=== PATIENT | male | born 1930 | race Caucasian/White ===

== ENCOUNTER → 2017-01-14 | Outpatient (CLI) | payer MEDICARE ==
[~2017-01-14] MED LIST: CARTIA XT120 MG PO; LASIX20 MG PO; LIPITOR20 M1 PO; NITROSTAT0.4 MG SL; PLAVIX75 MG PO; TOPROL XL25 MG PO; XARELTO15 MG PO
--- NOTE | ~2017-01-14 | PUL ---
PATIENT'S NAME: ALICJA ESPITIA [facility] AGE: 86 Y [address] ROOM: [place] [address] LOCATION: [facility] ADMIT DATE: 01/14/2017 Pulmonary DISCHARGE DATE: FAMILY PHYSICIAN: STAR BRICENO MD ATTENDING PHYSICIAN: STAR BRICENO NAME OF PROCEDURE: Sleep study DATE OF PROCEDURE: 01/14/17 TECH: Myke Gates [facility] TEST #: [facility]# [id number] MEDICAL HISTORY: The patient is an 86-year-old gentleman with nocturnal hypoxemia, daytime sleepiness and snoring. SLEEP STAGE SUMMARY: The patient was studied for 477 minutes of which he slept 329 minutes. He fell asleep in 6 minutes and slept for 69% of the night. Sleep architecture demonstrated a decrease in slow wave and REM sleep. RESPIRATORY SUMMARY: Oxygen saturations ranged from 78-96% and were below 88% for 9 minutes. There were 124 central apneas, 1 mixed apnea and 6 hypopneas. CPAP was initiated and titrated. The patient was switched to BiPAP. BiPAP at 19/15 cm produced significant improvement in the apnea/hypopnea index but was it was still elevated at 15 events per hour. EKG SUMMARY: Average heart rate during sleep 73 beats per minute. LIMB MOVEMENT SUMMARY: No clinically relevant periodic limb movements were noted. SUMMARY: Predominantly central sleep apnea. PLAN: Would consider a repeat study to re-titrate BiPAP. ASV ventilation could be considered unless the patient has dilated cardiomyopathy with an ejection fraction of left less than 40%. If the patient repeats BiPAP titration then a timed mode should be added. Patient will receive results from the ordering provider. MALLIKA CULVER MD PATIENT'S NAME: ALICJA ESPITIA [facility] AGE: 86 Y [address] ROOM: [place] [address] LOCATION: [facility] ADMIT DATE: 01/14/2017 Pulmonary DISCHARGE DATE: FAMILY PHYSICIAN: STAR BRICENO MD ATTENDING PHYSICIAN: STAR BRICENO/ /[id number] P dtt: 01/22/17 1455 Brian David E. dtd: 01/18/17 0939
== END | disposition disaster alternative care site (69) ==
LOC: GSLP 20:24
DX: G47.34 Idiopathic sleep related nonobstructive alveolar hypoventilation (principal); G47.31 Primary central sleep apnea; I50.9 Heart failure, unspecified; I27.2 Other secondary pulmonary hypertension

== ENCOUNTER → 2017-02-26 | Outpatient (CLI) | payer MEDICARE ==
--- NOTE | ~2017-02-26 | ENPV ---
Vascular Lower Extremities DVT Study Procedure Demographics Patient Name ALICJA ESPITIA Date of Study 02/26/2017 Patient Number [id number] Gender Male Date of 1930 Age 86 Visit Number [id number] Height Accession Number [id number] Weight Room Number BSA BMI Referring Rina Gutierrez MD Interpreting Byron Pinto MD Physician Physician Physician Ordering Rina Gutierrez [employer] Work Program Director Sakshi [facility] Prema Dawson Conclusions Summary The left superficial femoral vein appears to be bi-fed. There is sub-acute, partially occlusive deep vein thrombosis in the mid segment of the left common femoral vein(s). No evidence of deep vein thrombosis or superficial thrombophlebitis in the contralateral groin. Procedure Type of Study: Veins:Lower Extremities DVT Study, Lower Extremity Left. Indications for Study:Pain in Limb and Swelling of Limb. Appropriate Use Criteria:9 Allergies - No known allergies. Patient Status:Routine. Study Location:Vascular Lab. Technical Quality:Adequate visualization. - Preliminary reported to:Dr. Flynn. Velocities are measured in cm/s ; Diameters are measured in cm Right Lower Extremities DVT Study Measurements Right 2D and Doppler Measurements + + + + +------+------+ + !Location !Visualized!Compressibility!Thrombosis!Signal!Reflux!Reflux ! ! ! ! ! ! ! !(sec) ! + + + + +------+------+ + !GSV Thigh !Yes !Yes !None !Phasic! ! ! + + + + +------+------+ + !Common !Yes !Yes !None !Phasic! ! ! !Femoral ! ! ! ! ! ! ! + + + + +------+------+ + Left Lower Extremities DVT Study Measurements Left 2D and Doppler Measurements + + + + +------+------+ + !Location !Visualized!Compressibility!Thrombosis!Signal!Reflux!Reflux ! ! ! ! ! ! ! !(sec) ! + + + + +------+------+ + !GSV Thigh !Yes !Yes !None !Phasic! ! ! + + + + +------+------+ + !Common !Yes !Yes !None !Phasic! ! ! !Femoral ! ! ! ! ! ! ! + + + + +------+------+ + !Prox !Yes !Yes !None !Phasic! ! ! !Femoral ! ! ! ! ! ! ! + + + + +------+------+ + !Mid Femoral!Yes !No !Sub-acute ! ! ! ! + + + + +------+------+ + !Dist !Yes !Partial !None !Phasic! ! ! !Femoral ! ! ! ! ! ! ! + + + + +------+------+ + !Popliteal !Yes !Yes !None !Phasic! ! ! + + + + +------+------+ + !Gastroc !Yes !Yes !None ! ! ! ! + + + + +------+------+ + !PTV !Yes !Yes !None ! ! ! ! + + + + +------+------+ + !Peroneal !Yes !Yes !None ! ! ! ! + + + + +------+------+ + Impressions Right Impression No evidence of deep vein thrombosis or superficial thrombophlebitis in the contralateral groin. Left Impression The left superficial femoral vein appears to be bi-fed. Signature dtt: HELGA TROY dtadela: 02/26/17 1501 Physician Self Edit
== END | disposition disaster alternative care site (69) ==
LOC: GCAR 14:30
DX: R60.9 Edema, unspecified (principal); M79.605 Pain in left leg; I82.412 Acute embolism and thrombosis of left femoral vein

== ENCOUNTER → 2017-03-13 | Outpatient (CLI) | payer MEDICARE ==
--- NOTE | ~2017-03-13 | ENPV ---
Vascular Lower Extremities DVT Study Procedure Demographics Patient Name ALICJA ESPITIA Date of Study 03/13/2017 Patient Number [id number] Gender Male Date of 1930 Age 86 Visit Number [id number] Height Accession Number [id number] Weight Room Number BSA BMI Referring Interpreting Byron Pinto MD Physician Physician Physician Ordering Physician Regional Program Manager Tooling Mechanic Osman Dawson Conclusions Summary Chronic calf vein DVTs Procedure Type of Study: Veins:Lower Extremities DVT Study, Lower Extremity Left. Allergies - No known allergies. Velocities are measured in cm/s ; Diameters are measured in cm Right Lower Extremities DVT Study Measurements Right 2D and Doppler Measurements + + + + +------+------+ + !Location !Visualized!Compressibility!Thrombosis!Signal!Reflux!Reflux ! ! ! ! ! ! ! !(sec) ! + + + + +------+------+ + !Common !Yes !Yes !None ! ! ! ! !Femoral ! ! ! ! ! ! ! + + + + +------+------+ + Left Lower Extremities DVT Study Measurements Left 2D and Doppler Measurements + + + + +------+------+ + !Location !Visualized!Compressibility!Thrombosis!Signal!Reflux!Reflux ! ! ! ! ! ! ! !(sec) ! + + + + +------+------+ + !GSV Thigh !Yes ! !None ! ! ! ! + + + + +------+------+ + !Common !Yes !Yes !None ! ! ! ! !Femoral ! ! ! ! ! ! ! + + + + +------+------+ + !Prox !Yes !Yes !None ! ! ! ! !Femoral ! ! ! ! ! ! ! + + + + +------+------+ + !Mid Femoral!Yes !Yes !None ! ! ! ! + + + + +------+------+ + !Dist !Yes !Yes !None ! ! ! ! !Femoral ! ! ! ! ! ! ! + + + + +------+------+ + !Popliteal !Yes !Yes !None ! ! ! ! + + + + +------+------+ + !PTV !Yes ! !Chronic ! ! ! ! + + + + +------+------+ + !Peroneal !Yes ! !Chronic ! ! ! ! + + + + +------+------+ + Impressions Right Impression Common femoral vein imaged for comparison and found to be normal. Left Impression Left SFV appeared to be duel and appeared patent. Difficult to see Profunda vein in thigh so cannot rule out thrombus there. Calf veins also difficult to image but appeared to have filling defects similar to last study. Signature dtt: HELGA TROY: 03/13/17913 Physician Self Edit
== END | disposition disaster alternative care site (69) ==
LOC: GCAR 09:00
DX: M79.605 Pain in left leg (principal); I82.5Z2 Chronic embolism and thrombosis of unspecified deep veins of left distal lower extremity; Z86.718 Personal history of other venous thrombosis and embolism

== ENCOUNTER → 2017-03-17 | Outpatient (CLI) | payer MEDICARE ==
--- NOTE | ~2017-03-17 | PUL ---
PATIENT'S NAME: ALICJA ESPITIA [facility] AGE: 86 Y [address] ROOM: [place] [address] LOCATION: [facility] ADMIT DATE: 03/17/2017 Pulmonary DISCHARGE DATE: FAMILY PHYSICIAN: STAR BRICENO MD ATTENDING PHYSICIAN: STAR BRICENO NAME OF PROCEDURE: Sleep study PROCEDURE DATE: 03/17/17 TECH: EDILBERTO Etienne TEST #: [facility]# [id number] TECHNICAL PARAMETERS: The patient was studied using International 10/20 measuring system. While the patient was studied, there was continuous monitoring of EEG (8 leads), EOG (2 leads), EKG (3 leads), submental EMG (3 leads), tibial (4 leads), respiratory inductive plethysmography (RIP) for thoracic and abdominal effort, oral and nasal airflow with a thermocouple and pressure transducer, and oximetry. The hydraulic technician also performed visual and auditory observations noting things like body position, patient's status, breath sounds, artifact, snoring level and patient comments. Continuous sound was monitored using a 2-way speaker system and video monitoring was performed using an infrared camera. Review of the entire study was performed epoch by epoch utilizing a single epoch and multiple epoch capability sleep system. MEDICAL HISTORY: The patient is an 86-year-old overweight gentleman with daytime sleepiness and snoring. SLEEP STAGE SUMMARY: The patient was studied for 526 minutes of which he slept 419 minutes. He fell asleep in less than a minute and slept for 80% of the night. Sleep architecture revealed a decline in slow wave and REM sleep. RESPIRATORY SUMMARY: Oxygen saturations ranged from 78-92%. Saturations were below 88% for 42 minutes. This study was done to titrate PAP therapy. The patient was previously on BiPAP. BiPAP was started at 8/4 cm and titrated to 22/18 cm with good control of the respiratory events on that last setting. EKG SUMMARY: Average heart rate during sleep 69 beats per minute. LIMB MOVEMENT SUMMARY: No clinically relevant periodic limb movements were noted. SUMMARY: Obstructive sleep apnea. BiPAP at 22/18 cm appears to control the respiratory events adequately. The patient will receive results from the PATIENT'S NAME: ALICJA ESPITIA [facility] AGE: 86 Y [address] ROOM: [place] [address] LOCATION: [facility] ADMIT DATE: 03/17/2017 Pulmonary DISCHARGE DATE: FAMILY PHYSICIAN: STAR BRICENO MD ATTENDING PHYSICIAN: STAR BRICENO ordering provider. MALLIKA CULVER MD /[id number] dtt: 04/01/17 0742 , Mallika Culver. dtd: 03/20/17 1331
== END | disposition disaster alternative care site (69) ==
LOC: GSLP 02-24 21:00
DX: G47.34 Idiopathic sleep related nonobstructive alveolar hypoventilation (principal); G47.33 Obstructive sleep apnea (adult) (pediatric); I27.2 Other secondary pulmonary hypertension; R53.83 Other fatigue

== ENCOUNTER 2017-04-22 16:00 | Inpatient (IN) | payer MEDICARE ==
[~2017-04-22] VITALS: Ht 165.1 cm; Wt 86.6 kg
--- NOTE | ~2017-04-22 | ENPV ---
Vascular Lower Extremities DVT Study Procedure Demographics Patient Name ALICJA ESPITIA Date of Study 05/01/2017 Patient Number [id number] Gender Male Date of 1930 Age 86 Visit Number [id number] Height Accession Number [id number] Weight Room Number G3210 BSA BMI Referring Jenny Benitez Interpreting Byron Pinto MD Physician Rina Gutierrez MD Physician Consuelo [facility] Physician Ordering Physician Jenny Benitez Gas Mask Assembler Pheresis Specialist Bryan Portillo, T Conclusions Summary Acute occlusive deep vein thrombosis is noted in one of three femoral veins at the mid segment. Sub-acute non-occlusive deep vein thrombosis is noted in the left proximal femoral vein, distal femoral vein, and the popliteal vein. 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 The left posterior tibial and peroneal veins were not imaged secondary to wounds and dressings. Procedure Type of Study: Veins:Lower Extremities DVT Study, Lower Extremity Left. Additional Indications:Unilateral lower extremity edema Appropriate Use Criteria:8 Allergies - No known allergies. Patient Status:Routine. Study Location:Imaging Center. Technical Quality:Limited visualization due to wounds/dressings. - Preliminary reported to:Reported to [facility] nurse @ 2339. Velocities are measured in cm/s ; Diameters are measured in cm Right Lower Extremities DVT Study Measurements Right 2D and Doppler Measurements + + + + +------+------+ + !Location !Visualized!Compressibility!Thrombosis!Signal!Reflux!Reflux ! ! ! ! ! ! ! !(sec) ! + + + + +------+------+ + !Common !Yes !Yes !None !Phasic!No ! ! !Femoral ! ! ! ! ! ! ! + + + + +------+------+ + Left Lower Extremities DVT Study Measurements Left 2D and Doppler Measurements +---------+ + + + +------+--------+ !Location !Visualized!Compressibility!Thrombosis!Signal !Reflux!Reflux ! ! ! ! ! ! ! !(sec) ! +---------+ + + + +------+--------+ !GSV Thigh!Yes !Yes !None !Phasic !No ! ! +---------+ + + + +------+--------+ !Common !Yes !Yes !None !Phasic ! ! ! !Femoral ! ! ! ! ! ! ! +---------+ + + + +------+--------+ !Prox !Yes !Partial !Sub-acute !Diminished! ! ! !Femoral ! ! ! ! ! ! ! +---------+ + + + +------+--------+ !Mid !Yes !No !Acute !Absent ! ! ! !Femoral ! ! ! ! ! ! ! +---------+ + + + +------+--------+ !Dist !Yes !Partial !Sub-acute !Pulsatile !Yes ! ! !Femoral ! ! ! ! ! ! ! +---------+ + + + +------+--------+ !Popliteal!Yes !Partial !Sub-acute !Diminished!Yes ! ! +---------+ + + + +------+--------+ !Gastroc !Yes !Partial !Chronic ! ! ! ! +---------+ + + + +------+--------+ !PTV !No ! ! ! ! ! ! +---------+ + + + +------+--------+ !Peroneal !No ! ! ! ! ! ! +---------+ + + + +------+--------+ Signature dtt: HELGA TROY: 05/01/17 7340 Physician Self Edit
--- NOTE | ~2017-04-22 | CON ---
PATIENT'S NAME: ALICJA ESPITIA [facility] AGE: 86 Y [address] ROOM: [place] [address] LOCATION: [facility] ADMIT DATE: 04/22/2017 Consultation DISCHARGE DATE: 05/03/2017 FAMILY PHYSICIAN: STAR BRICENO MD ATTENDING PHYSICIAN: MYNOR BOURGEOIS REFERRING PHYSICIAN: SCOTT BUNCH MD A consult for Dr. Magdaleno. HISTORY OF PRESENT ILLNESS: This pleasant 86-year-old gentleman is referred for rehab evaluation, GIRP evaluation, admitted on 04/22/2017 with status post, as per history, on 04/25/2017, the following issues that were addressed: 1. Left foot first metatarsal osteomyelitis with full thickened wound at the metatarsal head with discharge and abscess formation. 2. Gastrocnemius equinus, shortened Achilles tendon, left leg. Did undergo: 1. Left gastrocnemius resection procedure. 2. Resection and debridement of 4 x 4 cm wound abscess, debridement of included skin, subcutaneous, and fascia with bone, as I mentioned, on 04/25/2017, details on record. He is, at the present time, nonweightbearing on that foot. PAST MEDICAL HISTORY: Past history of significance as follows: 1. Coronary artery disease, status post stenting. 2. Paroxysmal atrial fibrillation. 3. Peripheral vascular disease. 4. History of left lower extremity DVT. 5. Hypertension. PHYSICAL EXAMINATION: GENERAL: At the present time, he is alert, oriented, slightly hard of hearing. VITAL SIGNS: Blood pressure 142/95, temperature 97.9, pulse 124, respiration rate is 18. He is 5 feet 5 inches tall and weighs 86.6 kg. NEUROLOGIC: He is neurologically intact. Cranial nerves 2 through 12 are within normal limits. Deep tendon reflexes are present and equal throughout. Can move all 4. Muscle strength is about 4- throughout over 5 to 4/5; however, with decreased endurance and at risk of falling. MEDICATIONS: He is on the following medications: 1. Tylenol. 2. Halcion. 3. Heparin. PATIENT'S NAME: ALICJA ESPITIA [facility] AGE: 86 Y [address] ROOM: [place] [address] LOCATION: [facility] ADMIT DATE: 04/22/2017 Consultation DISCHARGE DATE: 05/03/2017 FAMILY PHYSICIAN: STAR BRICENO MD ATTENDING PHYSICIAN: MYNOR BOURGEOIS 4. Lipitor. 5. Plavix. 6. Percocet. 7. Chloraseptic. 8. Fleet Enema. 9. Dulcolax. 10. Milk of magnesia. 11. Benadryl. 12. Soma. 13. Reglan. 14. Florastor. 15. Cardizem. 16. NaCl 0.9%. 17. Teflaro. 18. Xarelto. 19. Rifadin. 20. Rocephin. ASSESSMENT AND PLAN: He is so far nonweightbearing on the left foot and will continue to do that. He is also partial weightbearing on the upper extremity, right side, because of the fracture of the scapula per orthopod. I feel this gentleman will benefit from intensive rehabilitation of about 10 to 14 days, aiming to discharge home at modified independence. All the above was explained to him in detail. He verbalized understanding and agreement. Thank you for this referral. NENA VALLADARES MD WMS/modl /[id number] d: 05/02/17 1338 t: 05/07/17 0834, CONSULTATION REPORT
--- NOTE | ~2017-04-22 | CON ---
PATIENT'S NAME: ALICJA ESPITIA [facility] AGE: 86 Y [address] ROOM: [address] [place], [place] [address] LOCATION: [facility] ADMIT DATE: 04/22/2017 Consultation DISCHARGE DATE: FAMILY PHYSICIAN: STAR BRICENO MD ATTENDING PHYSICIAN: MYNOR YIP DATE OF CONSULTATION: 04/30/2017 REFERRING PHYSICIAN: SCOTT BUNCH MD HISTORY OF PRESENT ILLNESS: Dr. Yip has requested that I provide an inpatient consultation on this 86-year-old male. I have specifically been asked to follow up on the status of the right scapula fracture for which I had been treating him as an outpatient before his admission for treatment of a foot infection. The patient had a scapular spine-acromion fracture superimposed upon severe rotator cuff arthropathy. He has been in a sling for comfort for several weeks. He states that his acute discomfort has subsided. In fact, he states that he has negligible residual discomfort whatsoever. He acknowledges that he has been spending time out of his sling with no significant discomfort. Inability to use his arm (because of sling immobilization) is impairing his ability to mobilize now that he has had a foot operation. PHYSICAL EXAMINATION: He is alert and oriented. He is, again, noted to be extremely stoic. There is no swelling or deformity at the right shoulder. There is no tenderness at the right scapular spine or acromion. Radial pulse 2+. There are no active skin lesions or masses at the right shoulder. Median, radial, and ulnar nerve motor and sensory function are normal at the right hand. RADIOGRAPHS: Followup radiographs of the right shoulder from last week were reviewed. These demonstrate superior migration of the humeral head and severe glenohumeral joint space narrowing. There is a declined orientation at the junction of the scapular spine and the acromion (consistent with malunion of a fracture in the vicinity). No fracture line is visible. IMPRESSION: Clinically healed right acromial-scapular spine fracture. Right shoulder rotator cuff arthropathy (minimally symptomatic presently). PLAN: He is cleared to discontinue the sling and bear weight as tolerated to the right upper extremity. I have asked him to contact me if he experiences significant recurrent discomfort. We reviewed the option of considering PATIENT'S NAME: ESPITIA, ALICJA E [facility] AGE: 86 Y [address] ROOM: [address] [address] LOCATION: [facility] ADMIT DATE: 04/22/2017 Consultation DISCHARGE DATE: FAMILY PHYSICIAN: STAR BRICENO MD ATTENDING PHYSICIAN: MYNOR YIP reverse total shoulder arthroplasty (if and when nonoperative modalities fail to adequately control his symptoms). MD HANNAH DAY/nelly /[id number] CC: Mynor Yip MD d: 05/01/17 0656 t: 05/05/17 0104, CONSULTATION REPORT
--- NOTE | ~2017-04-22 | CON ---
PATIENT'S NAME: ALICJA ESPITIA [facility] AGE: 86 Y [address] ROOM: [address] [address] LOCATION: [facility] ADMIT DATE: 04/22/2017 Consultation DISCHARGE DATE: FAMILY PHYSICIAN: STAR BRICENO MD ATTENDING PHYSICIAN: MYNOR BOURGEOIS REFERRING PHYSICIAN: SCOTT BUNCH MD CHIEF COMPLAINT: Left toe ulcer and pain. The history is per primary through his [id number]-hit and some via the patient. HISTORY OF PRESENT ILLNESS: A pleasant 86-year-old male patient, who was seen in his primary care provider's office approximately 1 month ago with complaints of a blister on the medial left first metatarsal. The patient complained about some toe pain, swelling, redness. The patient was referred [facility] at that time. Apparently, the blister and wound went on to heal. Approximately 1 week ago, the patient took an extended walk and the blister worsened. Over the week, he again had toe pain, redness, and swelling. The patient had continued to be seen in Wound Care. Over the weekend apparently, the wound worsened with increasing pain and redness and swelling. On Saturday, the patient was seen in the [facility] where there was some bloody purulent- type drainage coming from the patient's ulcer. The patient was referred to the PCPs office, and the PCP admitted the patient to the hospital service for treatment. The patient does have a history of PVD, which per report, the patient's vascular study showed adequate blood flow to the left foot and toes. The patient had reported fever and chills on the history and physical, but denied any when I asked today. The xofrruva-ee-ggd does say the patient can be confused at times. An MRI of the left foot did show an osteomyelitis of the first metatarsal head per report. The patient was diagnosed with a left lower extremity DVT and has been on long- term anticoagulations since that time. The patient will be seen by Dr. French in the morning. PAST MEDICAL HISTORY: Positive for peripheral neuropathy, coronary artery disease, status post stents, paroxysmal atrial fibrillation, peripheral vascular disease, lower extremity DVT, hypertension, and chronic kidney disease. SOCIAL HISTORY: The patient does not report any history of smoking, alcohol, or illicit drug use. PATIENT'S NAME: ALICJA ESPITIA [facility] AGE: 86 Y [address] ROOM: [id number] [place], [place] [address] LOCATION: [facility] ADMIT DATE: 04/22/2017 Consultation DISCHARGE DATE: FAMILY PHYSICIAN: STAR BRICENO MD ATTENDING PHYSICIAN: MYNOR BOURGEOIS FAMILY HISTORY: Positive for history of coronary artery disease and high blood pressure in his parents. CURRENT MEDICATIONS: 1. Cardizem CD 120 mg p.o. daily. 2. Cubicin 500 mg IV at night. 3. Florastor 250 mg p.o. b.i.d. 4. Heparin per protocol. 5. Lopressor 25 mg p.o. b.i.d. 6. Plavix 75 mg p.o. daily. 7. Zosyn 3.375 inhales q.8 hours. 8. The patient is also on Percocet 5/325 one tablet every 4 hours as needed for pain. REVIEW OF SYSTEMS: All other review of systems was negative other than what is stated in HPI. PHYSICAL EXAMINATION: CONSTITUTIONAL: This is an 86-year-old male patient, who is confused at times. He is in no acute distress. VITAL SIGNS: Blood pressure 92/51, heart rate is 82, respirations are 16, temperature is 98.3 degrees. SKIN: There is approximately 1.5 cm x 1.5 cm ulcerations on the patient's left medial distal first metatarsal. No active drainage noted. There was some mild swelling and redness around the ulceration and the foot. HEENT: Head was atraumatic, normocephalic. Extraocular muscles are intact. Mouth was moist. Oropharynx is clear. No active drainage from the nose. NECK: Supple. Trachea was midline. HEART: Regular rate and rhythm. LUNGS: Respirations were even and nonlabored. ABDOMEN: Soft, nontender, nondistended. : Deferred. MUSCULOSKELETAL: The patient's right lower extremity, right ankle had no palpable tenderness. Range of motion was approximately 2 degrees and 35 degrees of dorsiflexion with 5/5 strength. Right knee range of motion was 0 to approximately 130 degrees of flexion. Collateral and cruciate ligaments were stable with no palpable tenderness. Left lower extremity: Left knee range of motion was 0 to approximately 130 degrees of flexion. Cruciate and collateral ligaments were stable. No palpable tenderness. Left ankle range of motion was approximately 2 degrees of dorsiflexion to 35 degrees of plantar flexion with 5/5 strength left foot as described above. Skin ulceration as described above. Bilateral lower extremities compartments are soft. Right upper extremity: The patient was in a sling from a prior fracture that is PATIENT'S NAME: ALICJA ESPITIA [facility] AGE: 86 Y [address] ROOM: [address] [address] LOCATION: [facility] ADMIT DATE: 04/22/2017 Consultation DISCHARGE DATE: FAMILY PHYSICIAN: STAR BRICENO MD ATTENDING PHYSICIAN: MYNOR BOURGEOIS being followed by Dr. Packer. There was vascular stasis changes noted of bilateral lower extremities. VASCULAR: Right and left pedal pulses were not palpable, but capillary refill was less than 2 seconds. Lower extremity sensation. NEUROLOGICAL: Bilateral lower extremity sensation was decreased to light touch. LABORATORY DATA: Sodium is 144, potassium is 3.5, chloride is 107, CO2 is 28, BUN is 24, creatinine was 1.5, glucose was 103. CBC: Hemoglobin was 12.2, hematocrit was 38.3, WBCs were 8.0, and platelet count was 209. INR is 1.28. PTT was 13.5, magnesium 2.4. Wound cultures showed a pansensitive group B strep and Proteus mirabilis that was also pansensitive. Radiology per report right shoulder findings: 1. Extreme glenohumeral degenerative joint disease. 2. No convincing fracture, no periosteal retraction. Left foot MRI findings: 1. MRI findings of osteomyelitis at the head of the first metatarsal bone. 2. Soft tissue injury with adjacent swelling and edema at the medial side of the foot at the area of the first metatarsal joint. 3. Degenerative changes of the foot. IMPRESSION: Left first metatarsal head, osteomyelitis. PLAN: We will order x-rays of the left foot to document the bone. We will also check CRP and ESR levels to check inflammatory markers. The case was reviewed with Dr. French via the phone who did have a chance to review the MRI and we will plan for surgery tomorrow to include an irrigation and debridement of the left foot ulcer and resection of the first metatarsal head along with a gastrocnemius recession. CORNELL PACKER PA-C FOR MD ANTONIO SELF/nelly /[id number] d: 04/25/17 0030 t: 05/06/17 1043, CONSULTATION REPORT
--- NOTE | ~2017-04-22 | HP ---
PATIENT'S NAME: ALICJA ESPITIA [facility] AGE: 86 Y [address] ROOM: [place] [address] LOCATION: [facility] ADMIT DATE: 04/22/2017 History & Physical DISCHARGE DATE: FAMILY PHYSICIAN: STAR BRICENO MD ATTENDING PHYSICIAN: MYNOR BOURGEOIS DATE OF SERVICE: CHIEF COMPLAINT: Left toe ulcer, toe pain. HISTORY OF PRESENT ILLNESS: This is an 86-year-old male with history of coronary artery disease, status post recent stenting, paroxysmal atrial fibrillation, peripheral vascular disease, who presents from his primary care physician's office with complaints of worsening left toe pain, swelling, redness. The patient reports that he had been having increasing pain and swelling over left foot that has progressively gotten worse over the past month or so, and at the same time, a small ulcer that started on the inside of his left toe continuing to worsen, leading to how it is presenting today. The patient states that the pain is localized to the left foot and also mentions lower extremity numbness. The patient also describes generalized subjective fevers and chills as well. The patient of note was recently diagnosed with DVT on his left leg and had been on long-term anticoagulation for that. The patient otherwise denies any dizziness, lightheadedness, chest pain, shortness of breath, palpitations. Denies any cough, any dysuria, frequency urination. PAST MEDICAL HISTORY: 1. Coronary artery disease, status stent. 2. Paroxysmal atrial fibrillation. 3. Peripheral vascular disease. 4. Lower extremity DVT. 5. Hypertension. SOCIAL HISTORY: The patient does not report any history of smoking, alcohol use, or drug use. FAMILY HISTORY: The patient reports history of coronary artery disease and high blood pressure in the parents. REVIEW OF SYSTEMS: All systems have been reviewed and were all negative except as described in the HPI. PATIENT'S NAME: ALICJA ESPITIA [facility] AGE: 86 Y [address] ROOM: [place] [address] LOCATION: [facility] ADMIT DATE: 04/22/2017 History & Physical DISCHARGE DATE: FAMILY PHYSICIAN: STAR BRICENO MD ATTENDING PHYSICIAN: MYNOR BOURGEOIS PHYSICAL EXAMINATION: VITAL SIGNS: Blood pressure 117/75, pulse 77, respiratory rate 18, temperature 98.2, saturating 95% on room air. GENERAL: The patient is awake, alert, and oriented x3, in no acute distress. HEENT: Moist mucous membranes. No scleral icterus or conjunctival pallor noted. SKIN: Lower extremity swelling bilaterally and erythema with scaly skin noted. There is a dressing in place on the left foot with a visible ulcer with dark necrotic-looking tissue in the center of the ulcer. HEART: S1, S2. Regular rate and rhythm. CHEST: Clear to auscultation bilaterally. ABDOMEN: Soft, nontender, nondistended. EXTREMITIES: With +1 edema bilaterally. MUSCULOSKELETAL: Pain with active and passive range of motion of left great toe. NEURO: Grossly nonfocal. ASSESSMENT AND PLAN: 1. Left toe ulcer, concerning for osteomyelitis. The patient has failed outpatient treatment with oral antibiotics. At this point, we will go ahead and get an MRI of the foot and assess for osteomyelitis. The patient does exhibit signs of having severe peripheral vascular disease. I will involve Vascular Surgery, Dr. Matthews, in care of this patient. I will also start him on IV antibiotics with vancomycin and get wound cultures. 2. Left foot cellulitis. This is in relation to ulcer and surrounding tissue. Management is as above. 3. Paroxysmal atrial fibrillation. The patient is on long-term anticoagulation with Xarelto. I will hold this in anticipation of possible procedures to be done. If no procedure is needed, we will promptly resume this. We will await for vascular surgeon's input with regard to this. The patient did take his dose this morning. 4. Lower extremity deep venous thrombosis. The patient is on anticoagulation for this, and we will resume anticoagulation as soon as possible. 5. Coronary artery disease, status post recent stenting. We will continue the patient's cardiac medications. 6. Hypertension. Continue the patient's blood pressure medicines. MD LISA DISLA/nelly PATIENT'S NAME: ALICJA ESPITIA [facility] AGE: 86 Y [address] ROOM: [place] [address] LOCATION: [facility] ADMIT DATE: 04/22/2017 History & Physical DISCHARGE DATE: FAMILY PHYSICIAN: STAR BRICENO MD ATTENDING PHYSICIAN: MYNOR BOURGEOIS /[id number] D: [id number] T: [id number] HISTORY & PHYSICAL
--- NOTE | ~2017-04-22 | OR ---
PATIENT'S NAME: ALICJA PRUITT [facility] AGE: 86 Y [address] ROOM: [place] [address] LOCATION: [facility] ADMIT DATE: 04/22/2017 OR/Procedure Report DISCHARGE DATE: 05/03/2017 FAMILY PHYSICIAN: STAR BRICENO MD ATTENDING PHYSICIAN: MYNOR BOURGEOIS SURGEON: Ramone French MD MACHINE RIVETER: Charles Ji PA-C. DATE OF PROCEDURE: 04/25/2017 Corrected pre and post op diagnoses per physician 05/14/2017 AO PREOPERATIVE DIAGNOSES: 1. 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 2. Gastrocnemius equinus/shortened Achilles tendon, left leg. POSTOPERATIVE DIAGNOSES: 1. 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 2. Gastrocnemius equinus/shortened Achilles tendon, left leg. PROCEDURES: 1. Left gastrocnemius recession procedure. 2. Resection of first metatarsal bone. 3. Irrigation and debridement of full-thickness 4 cm x 4 cm wound abscess. Debridement included skin, subcutaneous tissue, muscle, fascia, and bone. 4. Use of intraoperative fluoroscopy, less than 1 hour. ANESTHESIA: General endotracheal anesthesia. FLUIDS: See anesthesia report. ESTIMATED BLOOD LOSS: Minimal. TOURNIQUET: Left proximal thigh 250 mmHg. SPECIMEN: Wound cultures from the left foot and osteomyelitic bone. COMPLICATIONS: None. DISPOSITION: Stable in PACU. COUNTS: All counts were correct. IMPLANTS: None. PATIENT'S NAME: ALICJA PRUITT [facility] AGE: 86 Y [address] ROOM: [address] [address] LOCATION: [facility] ADMIT DATE: 04/22/2017 OR/Procedure Report DISCHARGE DATE: 05/03/2017 FAMILY PHYSICIAN: STAR BRICENO MD ATTENDING PHYSICIAN: MYNOR BOURGEOIS INDICATIONS: Mr. Pruitt is a pleasant 86-year-old gentleman, who underwent the noted procedures above. The risks, benefits, and alternatives pursuing a surgical intervention were discussed with the patient and his family in detail. Anesthesia was consulted for their perioperative evaluation of the patient. I marked the left lower extremity indicating the correct surgical site. DESCRIPTION OF PROCEDURE: The patient was brought from the holding area to the operating room. A time-out was performed. Antibiotics were scheduled. General endotracheal anesthesia was administered. Left lower extremity was then prepped and draped in a sterile fashion. An Esmarch was used to exsanguinate the limb. The tourniquet was inflated to 250 mmHg. A final time-out was performed. I began at the medial aspect of the leg where I performed a gastrocnemius recession procedure. A longitudinal incision was made through skin, subcutaneous tissue, fascia, muscle, down to the gastrocnemius aponeurosis. I performed my gastrocnemius recession and achieved good dorsiflexion and diastasis of the gastrocnemius aponeurosis indicating successful procedure. The wound was then copiously irrigated with a normal sterile saline solution and closed in layers. I then turned my attention to the medial aspect of the foot. There was a 4.4 cm fungating wound with purulent drainage, that was full thickness in nature at the level of the metatarsophalangeal joint. I began with a thorough debridement of the wound. The debridement included skin, subcutaneous tissue, muscle, fascia, and bone. I ellipsed out the wound in its entirety. They measured approximately 4 cm x 4 cm. I extended the incision proximally along the first metatarsal. I introduced intraoperative fluoroscopy. I imaged the foot. Using an oscillating saw, I amputated the first metatarsal. Intraoperative wound cultures were obtained and osteolytic metatarsal was sent for specimen as well. The wound was then copiously irrigated with normal sterile saline solution. The debridement was undertaken with the use of a rongeur and 15-blade knife. A 3 L of normal saline solution via pulsatile lavage was used for the purposes of irrigating the wound out. The final fluoroscopic image indicated successful resection of the first metatarsal. The wound was then copiously irrigated again and closed using a 2-0 nylon suture in an interrupted horizontal mattress fashion to loosely approximate the tissue. Sterile dressing was placed in the form of Xeroform, followed by 4x4, Webril, PATIENT'S NAME: ALICJA PRUITT [facility] AGE: 86 Y [address] ROOM: [address] [address] LOCATION: [facility] ADMIT DATE: 04/22/2017 OR/Procedure Report DISCHARGE DATE: 05/03/2017 FAMILY PHYSICIAN: STAR BRICENO MD ATTENDING PHYSICIAN: MYNOR BOURGEOIS, and Stevie bandage. The tourniquet was let down. The patient was then transferred from operating table onto the stretcher and extubated. He was brought to the recovery room in stable condition. There were no intraoperative complications noted. Of note, my PA, Charles Ji PA-C, played an integral role in the intraoperative care of this patient. This included preoperative positioning, intraoperative expert retraction, and closing and dressing functions. IMPRESSION: The patient is status post the noted procedures above. PLAN: The patient will be nonweightbearing on the left lower extremity. I have encouraged him to rest, ice, and elevate the extremity going forward. Postop shoe will be placed on the foot for protection. Postoperative antibiotics will be as ordered currently. DVT prophylaxis may be in the form of Lovenox. Wound dressing will be checked on postoperative day one. My concern is that with a venous stasis disease in the patient's leg and the current state of the wound on the foot, there is a distinct possibility the patient may require higher amputation if these wounds do not heal. I relayed this to the family. I will continue to follow the patient closely in the postoperative period. MD LEVI SELF/nelly /[id number] Corrected pre and post op diagnoses per physician 05/14/2017 AO d: 04/25/17 2354 t: 05/15/17 1042, OPERATIVE SUMMARY
--- NOTE | ~2017-04-22 | ENPV ---
Vascular Lower Extremities Arterial Duplex Procedure Demographics Patient Name ALICJA ESPITIA Date of Study 04/24/2017 Patient Number [id number] Gender Male Date of 1930 Age 86 Visit Number [id number] Height Accession Number [id number] Weight Room Number G3307 BSA BMI Referring Byron Pinto MD Interpreting Byron Pinto MD Physician Physician Physician Ordering Physician Byron Pinto Marketing Database Coordinator Head Housekeeper Noe Pack RVT Conclusions Summary Duplex imaging of the right leg reveals no significant peripheral arterial disease . Duplex imaging of the left leg reveals no significant peripheral arterial disease . Diminished color flow in the left popliteal artery. Procedure Type of Study: Extremities Arteries:Lower Extremities Arterial Duplex, Arterial Duplex Lower Extremity Bilateral. Appropriate Use Criteria:9 Allergies - No known allergies. Patient Status:Routine. Study Location:Inpatient Portable. Technical Quality:Adequate visualization. Velocities are measured in cm/s ; Diameters are measured in cm LE Duplex Measurements + ++-----+ +----+---+ + ! !!Right! !Left! ! ! + ++-----+ +----+---+ + !Location !!PSV !Wave Desc. ! !PSV!Wave Desc. ! + ++-----+ +----+---+ + !Femoral !!39 !Triphasic ! !45 !Biphasic ! + ++-----+ +----+---+ + !PFA !!42 !Triphasic ! !50 !Biphasic ! + ++-----+ +----+---+ + !Prox SFA !!55 !Biphasic ! !78 !Biphasic ! + ++-----+ +----+---+ + !Mid SFA !!74 !Biphasic ! !123!Triphasic ! + ++-----+ +----+---+ + !Dist SFA !!54 !Biphasic ! !76 !Triphasic ! + ++-----+ +----+---+ + !Prox Popliteal !!28 !Biphasic ! !51 !Biphasic ! + ++-----+ +----+---+ + !Dist Popliteal !!42 !Biphasic ! !52 !Biphasic ! + ++-----+ +----+---+ + !Mid BACK TENDER INSULATION BOARD !!26 !Biphasic ! !97 !Biphasic ! + ++-----+ +----+---+ + !Mid ALVIN !!28 !Biphasic ! ! ! ! + ++-----+ +----+---+ + !DP !!34 !Biphasic ! !29 !Biphasic ! + ++-----+ +----+---+ + Signature dtt: HELGA TROY dtd: 04/24/17 0624 Physician Self Edit
--- NOTE | ~2017-04-22 | DS ---
PATIENT'S NAME: ALICJA ESPITIA [facility] AGE: 86 Y [address] ROOM: [id number] [place], [place] [address] LOCATION: [facility] [place] ADMIT DATE: 04/22/2017 Discharge Summary DISCHARGE DATE: 05/03/2017 FAMILY PHYSICIAN: Matt Flynn MD ATTENDING PHYSICIAN: Karley Yip PRINCIPAL DIAGNOSES: 1. Left first metatarsal osteomyelitis with Proteus mirabilis, Streptococcus agalactiae, and Staphylococcus epidermidis. 2. Paroxysmal atrial fibrillation. 3. Acute progression of left femoral deep venous thrombosis. 4. Coronary artery disease, status post drug-eluting stent to the right coronary artery. 5. Chronic kidney disease, stage 3. 6. Central hypertension. 7. Long-term anticoagulation. 8. Recent right scapular fracture. HOSPITAL COURSE: Please reference any of the admitting data to the history and physical as dictated by Dr. Yip. A brief review includes an 86-year-old male with a worsening left toe ulcer, who had failed outpatient oral antibiotic treatment, and was admitted for further evaluation and management for concerns of osteomyelitis. He was given a wound culture and started on IV vancomycin. An MRI on the left foot showed findings of osteomyelitis at the head of the first metatarsal bone with soft tissue injury and edema at the medial side of the foot around that same area. Vancomycin was changed to daptomycin and Zosyn for broader coverage. His Xarelto was held for the possibility of surgical intervention, and placed on a heparin drip. Wound Care consultation was obtained. Vascular consultation was obtained. Arterial duplex showed no significant peripheral arterial disease. Vascular referred to Orthopedic consultation. Plan for irrigation and debridement and bone resection was made. On 04/24/2017, culture data showed protease and Strep group B, so daptomycin was stopped. Heparin drip was stopped on the evening of the . Plavix was held at same time. He was taken for surgical resection on the without complications. He was made nonweightbearing to the left lower extremity in a postop shoe with Physical and Occupational Therapy consulting. He was given symptomatic pain support with IV and oral analgesia, and wound care accordingly. On the , Plavix and Xarelto were resumed. Zosyn was then changed to ceftriaxone based upon current culture data. Xarelto was held 24 hours prior to PICC line insertion. He was covered for prophylaxis with heparin subcutaneous. The PICC line was inserted on 04/29/2017 without complication, and heparin DVT prophylaxis was discontinued and Xarelto was resumed that day. New culture data on showed the addition of Staphylococcus epidermidis, so rifampin was started. ID PATIENT'S NAME: ALICJA ESPITIA [facility] AGE: 86 Y [address] ROOM: [place] [address] LOCATION: [facility] [place] ADMIT DATE: 04/22/2017 Discharge Summary DISCHARGE DATE: 05/03/2017 FAMILY PHYSICIAN: Matt Flynn MD ATTENDING PHYSICIAN: Karley Yip followup was obtained on 05/01/2017, and the antibiotics were transitioned to ceftaroline 400 mg q.12 hours through 06/11/2017. Inflammatory markers continued to go down. He had significant debility and physical deconditioning secondary to weightbearing restrictions to the left lower extremity and recent right scapular fracture had been nonweightbearing with significant restrictions as well. A followup x-ray of the right shoulder did not indicate any fracture. Consultation with his orthopedist, Dr. Ji, lifted those restrictions, and did make some progress with therapies, but was still felt to be weak. Dr. Stone's consultation was obtained, and felt that the patient was a good candidate for rehab. The patient has a history of DVT, and had been evaluated by Dr. Alvarado as an outpatient with recommendations for followup duplex scan, which was ordered by Dr. Alvarado during the patient's stay on May 01. This showed progression of the DVT to occlusion of the femoral vein. He was initially changed from once a day renal dose Xarelto to heparin drip for 24 hours before deciding that the patient was a best candidate for Xarelto treatment dosing at 15 mg twice daily, in which he was converted to and heparin drip was stopped. Vascular recommended IVC filter if the patient were to need further surgical intervention down the road, as well as serial monitoring of Doppler studies. If disease progression is noted, we will consider other anticoagulant options or further investigation of clotting factors. The patient does have a history of paroxysmal atrial fibrillation. He was monitored on telemetry. He did require further rate control as the patient has been in atrial fibrillation most of the time he has been here. He was started on metoprolol and tolerated this well, and rate control was in the 90s to 1 teens. Digoxin was added at the time of discharge for further rate control, and will be monitored when transitioned to inpatient rehab. The patient does have a history of chronic kidney disease, stage 3, and was monitored closely. Medications were renally dosed accordingly. His creatinine was maintained at a level of 1.4 to 1.7 during his stay. The patient was determined to be a rehab candidate, and at the time of discharge, the patient's condition was good and stable for transition to next level of care. CONSULTING PROVIDERS: 1. Blair Matthews MD, Vascular. 2. Orthopedics, Ramone French MD. 3. Infectious Disease, Dmitriy Jarvis MD. 4. Wound Ostomy Incontinence. PATIENT'S NAME: ALICJA ESPITIA [facility] AGE: 86 Y [address] ROOM: [place] [address] LOCATION: [facility] [place] ADMIT DATE: 04/22/2017 Discharge Summary DISCHARGE DATE: 05/03/2017 FAMILY PHYSICIAN: Matt Flynn MD ATTENDING PHYSICIAN: Karley Yip 5. Orthopedics, Kalen Ji MD. PRINCIPAL PROCEDURES: 1. Left gastrocnemius recession with resection of the first metatarsal bone. 2. Irrigation and debridement of wound abscess by Dr. Ramone French on 04/25/2017. SIGNIFICANT LABORATORY FINDINGS: Most recent labs revealed a CBC on 05/02/2017 as white blood cells of 9.5, hemoglobin of 11.6, hematocrit of 36.0, and platelet count of 319. CMS showed glucose of 92, BUN of 22, creatinine of 1.4 to 1.7 during his stay, sodium of 141, potassium of 4.5, chloride of 108, CO2 of 26, and calcium of 8.7. Liver functions were normal. Sedimentation rates of 24 and 55 respectively. CRP of 13.8, down to 4.96. Micro: Wound cultures initially showed a swab as Proteus mirabilis and Streptococcus agalactiae group B with moderate growth. A second swab showed only Proteus mirabilis. Tissue from the surgery showed Proteus mirabilis and Streptococcus agalactiae group B and Staphylococcus epidermidis, all light growth. RADIOLOGIC IMAGING: Chest x-ray on April 29 showed adequate placement of a left-sided PICC line at the proximal SVC. No lung findings. Left foot x-ray showed proper surgical resection at the head of the first metatarsal bone. Right shoulder, two view, showed extreme glenohumeral DJD with no convincing fracture or periosteal reaction. Left lower extremity MRI showed findings of osteomyelitis at the head of the first metatarsal bone with soft tissue injury and adjacent swelling and edema at the medial side of the right foot at the area of the first metatarsophalangeal joint and degenerative changes. 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 The left posterior tibial and peroneal veins are not imaged secondary to wound dressings. Arterial brachial indices showed no significant peripheral arterial disease in PATIENT'S NAME: ALICJA ESPITIA [facility] AGE: 86 Y [address] ROOM: [place] [address] LOCATION: [facility] [place] ADMIT DATE: 04/22/2017 Discharge Summary DISCHARGE DATE: 05/03/2017 FAMILY PHYSICIAN: Matt Flynn MD ATTENDING PHYSICIAN: Karley Yip either the right or left leg. DISCHARGE MEDICATIONS: Shows 1. Ceftaroline 400 mg IV twice daily, stop date 06/11/2017 at 23:59. 2. Acetaminophen 1000 mg p.o. every night at bedtime. 3. Plavix 75 mg p.o. everyday. 4. Cardizem 125 mg p.o. everyday, hold for systolic blood pressure less than 110. 5. Metoprolol tartrate 50 mg p.o. twice daily, hold if systolic blood pressure is less than 110 or heart rate is less than 60. 6. Florastor 250 mg p.o. twice daily. 7. Normal saline 250 mL bag per protocol as needed. 8. Tylenol 650 mg p.o. every six hours as needed. 9. Tylenol 650 mg per rectum every six hours as needed. 10. Dulcolax 10 mg per rectum as needed. 11. Soma 350 mg p.o. every six hours as needed. 12. Chloraseptic spray every 2 hours as needed. 13. Benadryl 25 mg to 50 mg p.o. every six hours as needed. 14. Milk of magnesia 30 mL p.o. as needed. 15. Percocet 5/325 mg one to two tablets p.o. every 4 hours as needed. 16. Fleet's 133 mL per rectum as needed. 17. Nitrostat 0.4 mg sublingual as needed for chest pain. 18. Atorvastatin 20 mg p.o. everyday. 19. Lasix 20 mg p.o. daily. 20. Xarelto 15 mg p.o. twice daily x20 days, then 15 mg p.o. daily. 21. Digoxin 0.25 mg p.o. today on 05/03/2017 and then 0.125 mg p.o. daily. DISCHARGE INSTRUCTIONS: The patient will transition level of care to inpatient rehab under Dr. Gabriele Stone with consultants to follow as the hospitalist and Orthopedics. CODE STATUS: No code. DIET: Cardiac, low salt, low fat, and low cholesterol. Monitoring of nutrition accordingly. ACTIVITY: Weightbearing status is nonweightbearing to the left lower extremity with surgical shoe. Occupational and physical therapy as directed by Dr. Stone. He will need to have the following studies done to include a venous duplex of bilateral lower extremities on 05/06/2017 to follow up DVT progression. He will need laboratory levels to include a chemistry panel, a CBC, a CRP, and PATIENT'S NAME: ALICJA ESPITIA [facility] AGE: 86 Y [address] ROOM: [address] [address] LOCATION: [facility] [place] ADMIT DATE: 04/22/2017 Discharge Summary DISCHARGE DATE: 05/03/2017 FAMILY PHYSICIAN: Matt Flynn MD ATTENDING PHYSICIAN: Karley Yip ESR every Saturday, as well as followup of a digoxin level on 05/06/2017. The patient's rehab potential is fair. His discharge potential is fair. The patient and his family are well aware of his condition and prognosis, and given the above line of management with all questions answered with statements of satisfaction. Total time arranging discharge was greater than 30 minutes. Thank you for allowing us to take care of this patient while at [facility]. We will continue to follow along with him in the inpatient rehab. SELENE FIORE APRN, APRN FOR MD MARIPOSA DLE CID/nelly /[id number] d: t: 05/06/17 1103, DISCHARGE SUMMARY
--- NOTE | ~2017-04-22 | CON ---
PATIENT'S NAME: [facility] AGE: 86 Y [address] ROOM: [facility] [place] [place], [place] [address] [place] [facility] [place]: 04/22/2017 Consultation DISCHARGE DATE: FAMILY PHYSICIAN: STAR BRICENO MD ATTENDING PHYSICIAN: MYNOR YIP DATE OF CONSULTATION: 05/01/2017 REFERRING PHYSICIAN: SCOTT BUNCH MD REFERRING PHYSICIAN: Mynor Yip MD. REASON FOR CONSULTATION: Left first metatarsal osteomyelitis. HISTORY OF PRESENT ILLNESS: This is an 86-year-old gentleman, with history of coronary artery disease, status post stent; paroxysmal AFib; peripheral vascular disease, who presented with left toe pain, swelling, and redness. The patient had an MRI done and suggested osteomyelitis, so status post I and D and first metatarsal bone resection by Dr. French and pathology was positive with osteomyelitis and culture grew Proteus mirabilis and group B Streptococcus and methicillin- resistant staphylococcus epidermidis. The patient is improving gradually and ID consultation is requested for antibiotic management. I discussed with Dr. French; even though resected the metatarsal bone, he is concerned that there might be some remained osteomyelitis there therefore, he recommended to treat as osteomyelitis still. The patient denied any fever or chills. No cough or mucus. No abdominal pain. PAST MEDICAL HISTORY: Coronary artery disease, paroxysmal atrial fibrillation, peripheral vascular disease, and hypertension. SOCIAL HISTORY: No smoking. FAMILY HISTORY: Positive for coronary artery disease and high blood pressure. ALLERGIES: NO KNOWN DRUG ALLERGIES. MEDICATIONS: Antibiotic beltran, he has been on IV ceftriaxone from April 26, 2017, and rifampin just started on 30 of April. PAT[facility] AGE: 86 Y [address] ROOM: [facility] [place] [place], [place] [address] [place] [facility] [place]: 04/22/2017 Consultation DISCHARGE DATE: FAMILY PHYSICIAN: STAR BRICENO MD ATTENDING PHYSICIAN: MYNOR YIP REVIEW OF SYSTEMS: Per HPI. PHYSICAL EXAMINATION: VITAL SIGNS: Blood pressure 143/84, pulse rate 118, respirations 20, and temperature 97.6. GENERAL: In NAD. HEENT: Conjunctivae pink. Sclerae not icteric. NECK: Supple. LUNGS: Clear to auscultation bilaterally. HEART: Regular rhythm and rate. ABDOMEN: Bowel sounds positive. No tenderness or rebound tenderness. BACK AND EXTREMITIES: Left foot wound dressing and splint. LABORATORY DATA: BUN 19, creatinine 1.4. CRP is 13.80 on 29 of April and normal value is less than 0.9. White blood cell 9.1, hemoglobin 10.6, and platelet 221. ESR done on 25 of April is 24. MRI done on 23 of April showed as osteomyelitis of the head of the first metatarsal bone. Culture data, 25 of April, from the OR: Culture positive for Proteus mirabilis, pansensitive and Staphylococcus epidermidis, methicillin-resistant, sensitive to tetracycline and resistant to Bactrim and also group B strep. ASSESSMENT AND PLAN: This is an 86-year-old gentleman here for left first metatarsal osteomyelitis, status post resection of the metatarsal head and culture grew Proteus, group B streptococcus, and methicillin-resistant Staphylococcus epidermidis. The patient is improving and discussed with Orthopedics and still of concern that there might be remained osteomyelitis and recommend to treat it as osteomyelitis. RECOMMENDATION: We will stop IV ceftriaxone and rifampin. We will start IV ceftaroline 400 mg q.12 hours which is renal dose and we will continue a total of 6 weeks, which will be through on June 11, 2017. We will check weekly labs; CBC, CMP, ESR, CRP, and fax to the ID Clinic at [phone] and recommend to follow up at ID Clinic in 4 weeks. MD GUY PORTILLO/nelly PATIENT'S NAME: ALICJA ESPITIA [facility] AGE: 86 Y [address] ROOM: [place] [address] [place] [facility] [place]: 04/22/2017 Consultation DISCHARGE DATE: FAMILY PHYSICIAN: STAR BRICENO MD ATTENDING PHYSICIAN: MYNOR YIP /[id number] d: 05/01/17 1841 t: 05/02/17 1013, CONSULTATION REPORT
--- NOTE | 2017-04-22 17:56 | NUR ---
Patient is 86 yo male admitted this evening for osteomyelitis of his left lateral great toe. He apparently had a blister about 3-4 weeks ago that his fdysuppb-ij-uls noticed. He went to the dr and was being treated by the wound nurses as an outpatient. it was improving. about 1 1/2 weeks ago, he went on a walk about 7 blocks. his shoes rubbed the area again and broke it open again the mtbulppl-ug-msi states and it is just getting worse instead of better. Patient's original blister was from his shoe rubbing. Patient lived in [place] for several years. He has moved to live with his son and his in October,. Patient does have dementia. 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 Education is given as documented. patient and dpihzags-ej-fao deny questions. call light is within reach. pneumatics are not on at this time due to injury to the left great toe and patients history of blood clot 4 weeks ago in left thigh and 2-3 years ago in his left calf. call light is within reach, patient denies needs at this time.
[2017-04-22 19:34] LABS: CREATININE 1.7 mg/dL (0.6-1.3)
--- NOTE | 2017-04-22 19:36 | NUR ---
ARRIVED FOR THE DOCTORS OFFICE AT 1630 PER WHEELCHAIR. TRANSFERED TO THE BED WITH 2 ASSIST. POOR TRANSFER. HAS A SLING ON TO RIGHT ARM FROM A PEVIOUS INJURY, BILAT LOWER LED EDEMA AND STAINING NOTED. DRESSING TO LEFT FOOT HAS SOME NEW BLOODY DRAINAGE ON IT. DRESSING REMOVED TO SEE A LARGE OPEN AREA TO THE OUTTER ASPECT OF HIS FOOT JUST BELOW HIS GREAT TOE ON THE LEFT. PT VERY FORGETFUL. FAMILY AT BEDSIDE.
--- NOTE | 2017-04-23 04:50 | NUR ---
Significant Event: Alert and oriented X3 but forgetful. Vital signs stable. Heart rate irregular. Hx afib. Shortness of breath with activity. Sling to R) upper arm from previous fracture (from a fall 2 months ago). Wears brief, 1 small incontinence. 1 small BM this am. Edema to lower legs and feet. Dislocaration bilateral lower legs (?venous staining). Dressing to L) foot ulcer was changed at 2300. Dressing now has shadow drainage. Doppler to tibial and pedal pulses. Transfers to bathroom with cane, gait belt and 1 assist. Unsteady. IV saline locked to L) FA. Minimal pain, refuses offers for pain medication. Follow up: Hx DVT 4 weeks ago, no pneumatic pumps per report from previous RN (addressed with MD).
[2017-04-23 06:05] LABS: BASOPHIL % 0.1 %; EOSINOPHIL # 0.3 K/uL (0.0-0.5); EOSINOPHIL % 3.6 %; HEMATOCRIT 38.3 % (33.0-50.0); HEMOGLOBIN 12.2 g/dL (11.0-16.0); IMMATURE GRANULOCYTE % 0.2 %; LYMPHOCYTE # 1.5 K/uL (0.8-4.0); LYMPHOCYTE % 19.2 %; MCH 29.3 pg (27.0-34.0); MCHC 31.9 gm/dL (32.0-36.5); MCV 91.8 fl (83.0-98.0); MONOCYTE % 11.9 %; MPV 9.4 fl (9.4-12.4); NEUTROPHIL # (ANC) 5.2 K/uL (1.4-9.0); NRBC % 0 /100WBC (0-0.00); PLATELET COUNT 209 K/uL (150-450); RBC 4.17 M/uL (3.50-5.50); RDW-CV 13.9 % (11.9-14.6)
[2017-04-23 06:17] LABS: INR - (THERAPEUTIC) 1.28 (0.92-1.07); PROTIME 13.5 SECONDS (9.8-11.4)
[2017-04-23 06:22] LABS: ALBUMIN 3.2 gm/dL (3.5-5.0); ANION GAP 12.5 (10.0-19.0); CALCIUM 8.1 mg/dL (8.5-10.5); CREATININE 1.5 mg/dL (0.6-1.3); MAGNESIUM 2.4 mg/dL (1.8-2.6); PHOSPHORUS 3.1 mg/dL (2.5-4.9); POTASSIUM 3.5 mMol/L (3.7-5.1)
--- NOTE | 2017-04-23 12:58 | NUR ---
Introduced self and role of care management to patient. He lives in [place] with his son and DIL. He thinks he will be going home with them. He says he is waiting to hear what they decide about his toe/foot. Will follow.
--- NOTE | 2017-04-23 17:12 | NUR ---
Significant Event: Alert and oriented, but forgetful. Vital signs stable. Pain medication given last at 1337. Up to bathroom with one assist and cane. Up in chair was complaining of shortness of breath while in the bed. Once moved to chair felt better. Lung sounds were clear. Edema to lower legs and feet. No BM but several voids thoughout the day. No pneumatic pumps to feet per orders. Follow up: Awaiting results from a doppler scan for lower extremeties.
--- NOTE | 2017-04-23 17:50 | NUR ---
Patient alert and oriented but forgetful. VSS, Heart rate irregulare. Shortness of breath when laying in bed, moved to chair and reported he was able to breath better. Lung sounds clear at this time. Edema to lower legs. Legs are brown stained, pulse is doppled. Left foot dressing changed, ulcer open, wet to dry dressing applied. Artierial duplex ordered tonight, on heparin protocol, PTTHP at 1730. Heparin at 1100 units/hr. sling to right arm, has had scapula fracture in the last month. CSM to right hand is adequate. Bed alarms and Tabs used.
--- NOTE | 2017-04-24 04:42 | NUR ---
Significant Event: Alert and oriented X3. Vital signs stable. Edema to lower extremities, elevated. Sling to RUE. Ulcer to L) foot. Wet to dry dressing changed X1. Heparin drip running @ 20ml/hr- 1,000 U. Next PTTHP is scheduled for 0530. Antibiotics changed to daptomycin and zosyn (both compatible with heparin). IV to L) FA. Denies need for pain medication. Denies numbness/tingling. Up with 1 assist, gait belt and cane. Follow up: Will have bilateral lower extremity arterial duplex this am.
[2017-04-24 06:14] LABS: CREATININE 1.5 mg/dL (0.6-1.3)
--- NOTE | 2017-04-24 18:12 | NUR ---
Patient alert and oriented, still forgetful at times. VSS, up and ambulated in the mcdonald x3. Void 6 times this shift, last void had 5 small clots in void. Zosyn and daptomyiocin started this shift. Follow up: Surgery tomorrow heprin to be stopped 6 hrs prior to surgery.
--- NOTE | 2017-04-25 04:24 | NUR ---
Significant Event: Alert and oriented x3. Can be forgetful at times, bed alarm on at all times. Vital signs stable. Voids frequently in small amounts. 1 small BM this am. Dressing to L) foot is CDI. Doppler pulses to bileral feet. Edema and discoloration to bilateral lower extremities. Up to bathroom with 1 assist, gait belt and cane. Has been NPO since midnight. Need Dr. French to document R&B's before permit is signed. Planning for OR at 1700. Heparin needs to be DC'd 6 hr prior to surgery. May wear nelda stocking (his own) to RLE only. Follow up: Permit. Surgery. DC heparin drip 6 hr prior to OR.
[2017-04-25 06:27] LABS: CREATININE 1.4 mg/dL (0.6-1.3)
--- NOTE | 2017-04-25 07:41 | NUR ---
Pt PTTHP was 64 at 0700. Infusion runs at 1000Uper hr/ 20 ml/hr. Rate left the same. Pt is therapeutic.
--- NOTE | 2017-04-25 12:15 | NUR ---
Spoke with patient's DILAnh. She says he is having surgery later today and they will have a better idea regarding his needs. She says they will take him home and make sure he gets whatever care he needs. Will follow.
[2017-04-25 14:35] LABS: BASOPHIL % 0.3 %; EOSINOPHIL # 0.2 K/uL (0.0-0.5); EOSINOPHIL % 4.1 %; HEMATOCRIT 35.7 % (33.0-50.0); HEMOGLOBIN 11.4 g/dL (11.0-16.0); IMMATURE GRANULOCYTE % 0.2 %; LYMPHOCYTE # 1.3 K/uL (0.8-4.0); LYMPHOCYTE % 21.4 %; MCH 29.4 pg (27.0-34.0); MCHC 31.9 gm/dL (32.0-36.5); MONOCYTE # 0.6 K/uL (0.0-1.0); MONOCYTE % 10.2 %; MPV 9.4 fl (9.4-12.4); NEUTROPHIL # (ANC) 3.8 K/uL (1.4-9.0); NEUTROPHIL % 63.8 %; NRBC % 0 /100WBC (0-0.00); PLATELET COUNT 221 K/uL (150-450); RBC 3.88 M/uL (3.50-5.50); RDW-CV 13.7 % (11.9-14.6); WBC 5.9 K/uL (4.0-11.0)
[2017-04-25 14:43] LABS: PTT 32 SECONDS (25-32)
--- NOTE | 2017-04-25 14:58 | NUR ---
Heparin stopped at 1007.
--- NOTE | 2017-04-25 17:15 | NUR ---
Pt alert, oriented, pleasant and cooperative. Forgetful at times. Pt family here most of shift. He has been up to BR about q 2 hr, amb mcdonald and up recliner with one assist. Rt arm in sling. CSM WNL Rt with thready Rt radial pulse. Pt denies scapula pain. Pt has dressing left foot dry and intact this shift. Pt hasn't tried to get up on own. Alarms used. Pt had breakfast then NPO at 1000. Heparin stopped at 1007 prior to OR. Pt went down to OR per bed at 1630. Pedal pulse on Rt doppled and post tibial on left doppled. 2+ edema bilat legs and feet. venous staining bilat lower legs. Pt has rated pain left foot at about 1. Urine clear this shift.
--- NOTE | 2017-04-26 05:04 | NUR ---
Significant Event: Dressing is clean, dry and intact. CSM WNL. On room air. NWB to L) leg. Sling to R) arm. Percocet at 0302. Morphine at 2315. On room air. Voids without difficulty. Follow up:
[2017-04-26 06:10] LABS: BASOPHIL % 0.2 %; EOSINOPHIL # 0.2 K/uL (0.0-0.5); EOSINOPHIL % 2.2 %; HEMATOCRIT 36.1 % (33.0-50.0); HEMOGLOBIN 11.5 g/dL (11.0-16.0); IMMATURE GRANULOCYTE % 0.4 %; LYMPHOCYTE # 1.6 K/uL (0.8-4.0); LYMPHOCYTE % 14.7 %; MCH 29.7 pg (27.0-34.0); MCHC 31.9 gm/dL (32.0-36.5); MCV 93.3 fl (83.0-98.0); MONOCYTE # 1.4 K/uL (0.0-1.0); MONOCYTE % 12.1 %; MPV 9.5 fl (9.4-12.4); NEUTROPHIL # (ANC) 7.8 K/uL (1.4-9.0); NEUTROPHIL % 70.4 %; NRBC % 0 /100WBC (0-0.00); PLATELET COUNT 212 K/uL (150-450); RBC 3.87 M/uL (3.50-5.50); RDW-CV 13.8 % (11.9-14.6); WBC 11.1 K/uL (4.0-11.0)
[2017-04-26 06:35] LABS: ANION GAP 10.1 (10.0-19.0); CALCIUM 8.3 mg/dL (8.5-10.5); POTASSIUM 4.1 mMol/L (3.7-5.1); TOTAL BILIRUBIN 0.6 mg/dL (0.0-1.5); TOTAL PROTEIN 6.6 g/dL (6.0-8.4)
[2017-04-26 06:36] LABS: CREATININE 1.6 mg/dL (0.6-1.3)
--- NOTE | 2017-04-26 17:12 | NUR ---
Pt alert, oriented, forgetful. drowsiness morning and early afternoon. More awake now. No analgesics this shift. Rates pain left foot at 1-2. He is NWB left. 2 asst pivot transfer when up earlier. In bed now. He has left leg elevated. Dressing changed this morning by Cricket ERICKSON and it is dry and intact. He has voided in urinal and incontinence at times. Brief on. Pt is DNR. Heparin not to be restarted per Dr Magdaleno. Pt pulse left foot doppled when dressing off. Rt leg doppled and now has jobst stocking on. Pt has eaten fair. Needs enc to drink more fluids and to start ensure. He has ID consult and PICC consult that won't be put in til Saturday. Pt BP meds held today for lower BP.
--- NOTE | 2017-04-27 04:22 | NUR ---
Alert and oriented- occasionally forgetful. Declined pain medications. NWB left foot. Stevie wrap and dressing CDI. 2 assist with pivot transfers. Voids per urinal and has episodes of incontinence as well. Encourage fluid intake. IV fluids infusing at 75/hr. ID consult and PICC consult Saturday. Metoprolol held this shift d/t low BP. VSS. RA. Afebrile. Needs set up for meals. Continue plan of care and discharge when appropriate.
--- NOTE | 2017-04-27 11:04 | NUR ---
A - PT SCREENED D/T LOS. OSTEOMYELITIS LLE S/P I&D. 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 DEMENTIA. ENC FLUID INTAKE. 2+ EDEMA. HT: 65" WT: 191# BMI: 31.7. LABS: GLU 118, BUN/CR 14/1.6, ALB 3.0, CRP 2.72, WBC 11.1. MEDS: REGLAN, D5NS, FLORASTOR, ROCEPHIN, BOWEL. DIET: REG. INTAKE: 50-100%. ENSURE TID (STARTED 04/26). NEEDS: 7131-2384 KCAL (20-25 KCAL/KG), 104-122 KCAL (1.2-1.4 G/KG), 2600 ML FLUID (30 ML/KG). D - INCREASED PRO NEEDS R/T HEALING AEB LLE WOUND. I - GOAL FOR INTAKE TO REMAIN 50-100%. GOAL FOR IMPROVED SKIN INTEGRITY. WILL CONTINUE ENSURE TID. M/E - WILL MONITOR INTAKE. F/U IN 4-6 DAYS.
--- NOTE | 2017-04-27 13:54 | NUR ---
Significant Event: pt alert and oriented. forgetful at times. 2 assist to stand and use the urinal. inc of urine at times. brief on. dressing to lt foot intact with cast padding and jeronimo wrap. nwbearing on lt foot. use doppler to assess pulses. encouraged to dringk fluids. Follow up:
--- NOTE | 2017-04-27 15:07 | NUR ---
PT MOVED TO MSU AT 1430. BHUPENDRA CALLED TO JACLYN ON MSU
--- NOTE | 2017-04-27 18:05 | NUR ---
Patient arrived to the floor from 3N around 1500. Assumed cares at that time. Patient has no complaints at this time. L) foot is wrapped, unable to assess wound. L) forearm is saline locked. R) arm in a sling for a scapula fracture. 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 History of dementia and NINILCHIK.
[2017-04-28 05:27] LABS: BASOPHIL % 0.2 %; EOSINOPHIL # 0.2 K/uL (0.0-0.5); EOSINOPHIL % 1.9 %; HEMATOCRIT 34.1 % (33.0-50.0); HEMOGLOBIN 10.9 g/dL (11.0-16.0); IMMATURE GRANULOCYTE # 0.1 K/uL (0.0-0.3); IMMATURE GRANULOCYTE % 0.7 %; LYMPHOCYTE # 1.1 K/uL (0.8-4.0); LYMPHOCYTE % 10.5 %; MCH 29.5 pg (27.0-34.0); MCV 92.2 fl (83.0-98.0); MONOCYTE # 1.1 K/uL (0.0-1.0); MONOCYTE % 10.8 %; MPV 9.7 fl (9.4-12.4); NEUTROPHIL # (ANC) 7.8 K/uL (1.4-9.0); NEUTROPHIL % 75.9 %; NRBC % 0 /100WBC (0-0.00); PLATELET COUNT 219 K/uL (150-450); RDW-CV 14.2 % (11.9-14.6); WBC 10.3 K/uL (4.0-11.0)
[2017-04-28 05:46] LABS: ANION GAP 11.2 (10.0-19.0); CALCIUM 8.2 mg/dL (8.5-10.5); CREATININE 1.4 mg/dL (0.6-1.3); POTASSIUM 4.2 mMol/L (3.7-5.1)
--- NOTE | 2017-04-28 07:04 | NUR ---
Significant Event: ALERT, FORGETFUL. C/O GENERALIZED DISCOMFORT AND GAVE 1 PERCOCET AT 2023 WITH RELIEF NOTED. FAMILY STATES THAT PATIENT HAS HIGH PAIN TOLERANCE AND WILL NOT ASK FOR PAIN MEDS EVEN WHEN STAFF ASKS PATIENT, LOOK FOR NON-VERBAL INDICATORS. PATIENT HAD LOW GRADE TEMP ON 1ST ASSESSMENT OF 99.3. HX A-FIB AND HR ALL OVER AND TACHY IN 100'S. SALINE LOCK TO L) FA FLUSHES WELL. 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 IS NWB ON L) FOOT. IS A STAND & PIVOT-DOES NOT TOLERATE WELL. PATIENT HAS FX TO R) SCAPULA AND IS IN AN ARM SLING AT ALL TIMES. CSM'S ADEQUATE ON ALL EXTREMITIES. INCONTINENT AT TIMES. SLEPT OFF/ON THROUGH NIGHT. BED ALARM ON AT ALL TIMES FOR SAFETY. Follow up:
--- NOTE | 2017-04-28 17:32 | NUR ---
Patient is alert and oriented, on room air. Non-weight bearing to L) foot, dressing needs changed, I was waiting to see if Dr. French was coming up to look at the incision. He has AFIB, so is tachycardic. R) arm in a sling for a scapula fx. Will have PICC placed tomorrow for senior care anitibiotics.
[2017-04-29 05:40] LABS: BASOPHIL % 0.1 %; EOSINOPHIL # 0.2 K/uL (0.0-0.5); EOSINOPHIL % 2.3 %; HEMOGLOBIN 10.6 g/dL (11.0-16.0); IMMATURE GRANULOCYTE # 0.1 K/uL (0.0-0.3); IMMATURE GRANULOCYTE % 0.5 %; LYMPHOCYTE # 0.9 K/uL (0.8-4.0); LYMPHOCYTE % 9.7 %; MCH 29.7 pg (27.0-34.0); MCHC 32.1 gm/dL (32.0-36.5); MCV 92.4 fl (83.0-98.0); MONOCYTE % 11.3 %; MPV 9.5 fl (9.4-12.4); NEUTROPHIL # (ANC) 6.9 K/uL (1.4-9.0); NEUTROPHIL % 76.1 %; NRBC % 0 /100WBC (0-0.00); PLATELET COUNT 221 K/uL (150-450); RBC 3.57 M/uL (3.50-5.50); RDW-CV 14.3 % (11.9-14.6); WBC 9.1 K/uL (4.0-11.0)
[2017-04-29 05:59] LABS: ALBUMIN 2.6 gm/dL (3.5-5.0); ANION GAP 11.4 (10.0-19.0); CALCIUM 8.3 mg/dL (8.5-10.5); CREATININE 1.4 mg/dL (0.6-1.3); POTASSIUM 4.4 mMol/L (3.7-5.1); TOTAL PROTEIN 6.6 g/dL (6.0-8.4)
[2017-04-29 06:01] LABS: TOTAL BILIRUBIN 0.3 mg/dL (0.0-1.5)
--- NOTE | 2017-04-29 07:09 | NUR ---
Significant Event: ALERT, FORGETFUL. PATIENT OFTEN DENIES PAIN BUT DOES APPEAR IN PAIN; FOLLOW NON-VERBAL CUES FOR PAIN AND GIVE PAIN MEDS FOR ANTICIPATED PAIN. GAVE 1 PERCOCET AT 2148 WITH RELIEF NOTED. DRESSING TO L) FOOT IS DRY/INTACT, DUE FOR CHANGE TODAY. IS SUPPOSE TO BE NWB BUT DOES NOT FOLLOW WHEN ATTEMPTING PIVOT TRANSFER. PATIENT HEARTRATE ON 1ST ASSESSMENT WAS VERY IRREGULAR AND HIGH IN 110'S-140'S EVEN TO AUSCULTATION. GAVE PO DOSE OF LOPRESSOR THEN NOTIFIED MD. ORDER FOR PRN IV LOPRESSOR AND GAVE DOSE AT 2027. PATIENT RESPONDED AND HEARTRATES DOWN TO 90'S-110'S. VOIDS PER URINAL. IS TO WEAR SLING TO R) ARM AT ALL TIMES DUE TO SCAPULAR FX. IV SALINE LOCK TO L) FA. IS TO GET PICC TODAY FOR SENIOR CARE IV ATB. SLEPT OFF/ON THROUGH NIGHT. Follow up: ASK PT FOR RECOMMENDATION FOR NWB ON L) LEG. ? USE [id number] LIFT.
--- NOTE | 2017-04-29 14:05 | NUR ---
Phone call from Garrett Lin APRN at 1220 stating that the families initial plan was for patient to discharge to home with them, but now that patient is non-weight bearing status with foot and arm is in a sling they are concerned about being able to care for him. Daughter in law Anh works on Inpatient rehab here at the hospital. She states that we cannot tell patient he is going to a senior living or [facility] because he will give up on life. Will present it to him that he is going to a rehab facility for strengthening before going home. Families first choice is [facility] and then [facility]. Will contact both and see if beds are available. Patient will not be ready for discharge until after 05/01 because he has a consult with the ID doctors. At this time he is on IV antibiotics once a day, but this could potentially change once he is seen by the ID doctor. Will continue to follow along and help with discharge planning.
--- NOTE | 2017-04-29 16:58 | NUR ---
Significant event: PICC line placed this am. Up with PT today and returned to bed with PT. Tylenol once for pain per request of family. Right arm in sling. Left foot dressing changed. Is on telemetry now. Appetite good. Drinking fair. Voids per urinal, incontinent at times. Had large soft BM. Heparin discontinued and started Xarelto po.
--- NOTE | 2017-04-30 03:28 | NUR ---
Significant Event: Alert to person and place, disoriented to time and disoriented conversation at times. VSS on room air. No calls from telemetry. Denies pain, family requested perocet at HS. Toileting schedule Q2hrs, less implusive. Voids 100mls at a time and can be incontinent. Repositioned Q2hrs but patient repositions self off of wedge. Stevie wrap to left foot C/D/I. Encouraged patient not to use foot. Right sholder in sling. PICC in left upper arm for INT ABX. Good blood return. Rested well this shift. Pleasant and cooperative with cares. Follow up: continue with plan of care.
--- NOTE | 2017-04-30 15:00 | NUR ---
Phone call from Olena at [facility] stating they are not able to accept patient because they cannot meet his needs with his IV antibiotics. Also had a call from Guillermina at [facility] and she states they are still reviewing patients information and trying to determine if they can meet his needs. Will continue to follow.
--- NOTE | 2017-04-30 17:33 | NUR ---
Significant Event: Alert and oriented X 3, but can be forgetful. Room air. SBP 110's and 140's. HR 110's and 90's. Patient is on portable tele. 1 call concerning heart rate in 140's to 160's, patient was transferring to commode and chair at this time. Patient is hard of hearing. Dressing on left foot clean dry and intact. CSM intact. Up with 2 assist and full lift. Patient went outside with family this afternoon. Right shoulder in sling. PICC in left upper arm for INT ABX. Flushes well with good blood return. Denies any pain. Pleasant and cooperative with cares. Follow up:
--- NOTE | 2017-05-01 04:21 | NUR ---
Significant Event: PATIENT IS ALERT AND ORIENTED EARLY ON IN SHIFT. THROUGHOUT SHIFT PATIENT DOES SHOW SOME CONFUSION. PATIENT DENIES PAIN THROUGHOUT SHIFT. DID NOT SLEEP WELL. ON ROOM AIR. NWB TO LEFT FOOT. USING FULL LIFT. TELE NO CALLS. HX OF RIGHT SCAPULA FX. SLING WAS D/C'D PER DR. PACKER LAST NIGHT. PATIENT MAY NOW USE WALKER OR CRUTCHES. AKOSUA PICC. COMPRESSION STOCKING TO RIGHT LOWER LEG. Follow up: PATIENT TO BE EVALUATED FOR PLACEMENT TODAY. REHAB VS. NURSING FACILITY.
--- NOTE | 2017-05-01 08:57 | NUR ---
Met with patient at 0810 today. Informed him that [facility] is coming to assess him between [id number] today for potential placement for short rehab stay. Patient understands this and is in agreement. Elaine Suarez SW on [facility] also called me this morning and would like for us to put in a Dr. Ziegler consult. Qrvqkipe-um-kuk Anh works on [facility] and would like to see if he can go to [facility]. Explained to patient that in order to go to [facility] in would need to be able to do 3 hours of therapy and he states that he feels like he will be able to do 3 hours of therapy so he would like to look at this as an option. Note placed on chart for Dr. Ziegler consult.
--- NOTE | 2017-05-01 14:06 | NUR ---
Significant Event: Pt denies pain. 2 min assist transfer to commode but per PT/family request, either use lift or slide board as pt is unable to be non-wt bearing on the left foot. Inc urine/bowel at times. Up in recliner x2. Confused most of shift. Bed alarm on for safety. Has a PICC line. Tele on, no calls, does appear that pt is in AFIB. Doppler study of left lower leg to be done today. [facility] was here to eval pt for placement. Follow up:
--- NOTE | 2017-05-01 15:20 | NUR ---
A - NUTRITION FOLLOW-UP. LABS: GLU 104, CREA 1.4, ALB 2.6, CRP 13.8. NEW MEDS: AUGUST DIET: REGULAR W/ ENSURE ENLIVE TID. INTAKE 75% X10 MEALS. GOOD APPETITE PER SHIFT REPORT. EST NEEDS: 2908-1604 KCAL, 104-122 GRAMS PROTEIN, FLUID NEEDS: 1ML/KCAL D - NUTRITION PROBLEM RESOLVED. I - CONTINUE W/ ENSURE ENLIVE TID. M/E - GOAL: PT WILL CONTINUE TO TOLERATE >75% OF MEALS AND AT LEAST ONE ORAL SUPPLEMENT PER DAY IN 5-7 DAYS.
[2017-05-01 18:26] LABS: BASOPHIL % 0.2 %; EOSINOPHIL # 0.3 K/uL (0.0-0.5); EOSINOPHIL % 3.6 %; HEMATOCRIT 35.1 % (33.0-50.0); HEMOGLOBIN 11.5 g/dL (11.0-16.0); IMMATURE GRANULOCYTE % 0.3 %; LYMPHOCYTE # 1.1 K/uL (0.8-4.0); LYMPHOCYTE % 12.3 %; MCH 30.3 pg (27.0-34.0); MCHC 32.8 gm/dL (32.0-36.5); MCV 92.6 fl (83.0-98.0); MONOCYTE % 11.2 %; MPV 9.6 fl (9.4-12.4); NEUTROPHIL # (ANC) 6.4 K/uL (1.4-9.0); NEUTROPHIL % 72.4 %; NRBC % 0 /100WBC (0-0.00); RBC 3.79 M/uL (3.50-5.50); RDW-CV 14.3 % (11.9-14.6); WBC 8.8 K/uL (4.0-11.0)
[2017-05-01 18:30] LABS: PLATELET COUNT 277 K/uL (150-450)
[2017-05-01 18:39] LABS: INR - (THERAPEUTIC) 1.27 (0.92-1.07); PROTIME 13.4 SECONDS (9.8-11.4)
--- NOTE | 2017-05-02 04:26 | NUR ---
Significant Event: Patient is alert and oriented x 3. Forgetful. 2 assist with full lift or slide board. Nonweightbearing to left leg. VSS on room air. On telemetry, no calls. Dressing to left lower leg is clean, dry, and intact. Uses urinal, but incontinent of urine at times. Denies any pain. Scheduled Tylenol given around 2050. Single lumen PICC to left upper arm with Heparin gtt running at 1200 units/hr. Next PTTHP at 0730. Impulsive at times. Bed alarms on at all times. Patient is pleasant and cooperative with cares. Follow up:
[2017-05-02 07:42] LABS: BASOPHIL % 0.3 %; EOSINOPHIL # 0.4 K/uL (0.0-0.5); EOSINOPHIL % 3.8 %; HEMOGLOBIN 11.6 g/dL (11.0-16.0); IMMATURE GRANULOCYTE % 0.4 %; LYMPHOCYTE # 1.5 K/uL (0.8-4.0); LYMPHOCYTE % 15.6 %; MCH 29.7 pg (27.0-34.0); MCHC 32.2 gm/dL (32.0-36.5); MCV 92.1 fl (83.0-98.0); MPV 9.7 fl (9.4-12.4); NEUTROPHIL # (ANC) 6.5 K/uL (1.4-9.0); NEUTROPHIL % 68.9 %; NRBC % 0 /100WBC (0-0.00); PLATELET COUNT 319 K/uL (150-450); RBC 3.91 M/uL (3.50-5.50); RDW-CV 14.4 % (11.9-14.6); WBC 9.5 K/uL (4.0-11.0)
[2017-05-02 08:01] LABS: ALBUMIN 2.9 gm/dL (3.5-5.0); ANION GAP 11.5 (10.0-19.0); CALCIUM 8.7 mg/dL (8.5-10.5); CREATININE 1.4 mg/dL (0.6-1.3); POTASSIUM 4.5 mMol/L (3.7-5.1); TOTAL PROTEIN 7.3 g/dL (6.0-8.4)
[2017-05-02 08:02] LABS: TOTAL BILIRUBIN 0.6 mg/dL (0.0-1.5)
--- NOTE | 2017-05-02 17:38 | NUR ---
Met with daughter in law Anh this morning after Dr. Ziegler saw patient for consult. Anh states that Dr. Ziegler is accepting patient on [facility] once he is medically cleared for discharge. I spoke to Elaine KAPLAN on [facility] and she confirms that they can accept patient at 0900 tomorrow, SaturdayMay 03, if he is medically cleared. I also called Guillermina at [facility] to see what they decided regarding accepting patient with the new change in the IV antibiotic. Due to the cost of the new IV Antibiotic [facility] is not able to accept him. I contacted Dr. Magdaleno and Garrett Lin APRN and informed them that patient can go to [facility] as early as tomorrow morning if medically cleared, but Dr. Magdaleno is not sure he will be ready by tomorrow. Per EUSEBIO Henry on [facility], patient could transfer there on Saturday or Saturday too. Will wait to see what Dr. Magdaleno says tomorrow and proceed from there.
--- NOTE | 2017-05-02 20:32 | NUR ---
Significant Event: Alert and oriented X 3. Can be forgetful at times. Room air. SBP 130's and 140's. HR 100's and 120's. Dressing to leg changed this shift. Denies pain. Patient on telemetry no calls. Up with 2 assist and full lift. PICC to upper left arm, flushes well with good blood return. Heparin stopped this shift and Xarelto started. Patient asks not to move right arm forward to far due to injury to that shoulder. Patient is hard of hearing. Pleasant and cooperative with cares. Follow up:
--- NOTE | 2017-05-03 02:38 | NUR ---
SIGNIFICANT EVENT: Patient alert & oriented. Regular diet. Daughter in law at bedside until HS. Non-weight bearing - full lift. I&D to R) leg, dressing C/D/I. Fell at home, bed alarms on 'middle' setting. [place], hears better out of L) ear than R). Admitted from fall at home, R) shoulder Fx - very painful to lift/extend R) arm so please avoid. Transfer to [facility] later this a.m. L) PICC is SL, intermittent IV antibiotics. R) compresssion stocking on in a.m., off at HS. VSS on RA. Pleasant and cooperative with cares.
--- NOTE | 2017-05-03 09:28 | NUR ---
Patient is alert and oriented, tachycardic, has chronic AFIB. [place], hears better on L) ear. Has a scab in R) ear that he will occassionally pick at and it will bleed. He is non-weight bearing to L) foot and has a scapula fracture to R) shoulder so has minimal movement with that. PICC to L) upper arm, dressing changed today. URIEL hose to R) leg. Has a new DVT and an old DVT to the L) thigh, Heparin drip was DC'd yesterday and Xarelto started. Will have a duplex scan on Saturday. He has labs that will continue until 06/11, those results need to be faxed to the ID clinic. All morning meds given today.
--- NOTE | 2017-05-03 10:19 | NUR ---
0850 phone call from Elaine KAPLAN on [facility] asking if patient is able to come today. Informed her that Dr. Magdaleno signed discharge last night, but will go to floor and check. Arrived on floor at 0855 and was informed that patient can go to [facility] today. Time was changed to 1000 for transfer. 0930 met with patient and informed him of the transfer to [facility] at 1000. Patient is in agreement with the transfer. Packet is ready. No other needs.
== END 2017-05-03 10:55 | DRG 475 ==
LOC: G3N 16:13 → GMSU 16:13 → G3N 16:13 → GMSU 04-27 14:27
PROVIDERS: Internal Medicine; Nurse Anesthetist, Certified Registered; ADMIT Internal Medicine
DX: M86.172 Other acute osteomyelitis, left ankle and foot (principal); I82.412 Acute embolism and thrombosis of left femoral vein; I48.0 Paroxysmal atrial fibrillation; L02.612 Cutaneous abscess of left foot; L03.116 Cellulitis of left lower limb; B95.7 Other staphylococcus as the cause of diseases classified elsewhere; B95.4 Other streptococcus as the cause of diseases classified elsewhere; M67.02 Short Achilles tendon (acquired), left ankle; I25.10 Atherosclerotic heart disease of native coronary artery without angina pectoris; I87.2 Venous insufficiency (chronic) (peripheral); N18.3 Chronic kidney disease, stage 3 (moderate); I12.9 Hypertensive chronic kidney disease with stage 1 through stage 4 chronic kidney disease, or unspecified chronic kidney disease; Z79.01 Long term (current) use of anticoagulants; Z95.5 Presence of coronary angioplasty implant and graft; Z86.718 Personal history of other venous thrombosis and embolism
CPT/HCPCS: A9270; C1751; G0463; J0696; J0712; J0878; J1644; J2270; J2543; J3010; J3370; J3480; J7040; J7050; J7120

== ENCOUNTER 2017-05-03 11:25 | Inpatient (IN) | payer MEDICARE ==
[~2017-05-03] VITALS: Ht 165.1 cm; Wt 85.5 kg
--- NOTE | ~2017-05-03 | CON ---
PATIENT'S NAME: ALICJA ESPITIA [facility] AGE: 86 Y [address] ROOM: [id number] [place], [place] [address] LOCATION: [facility] ADMIT DATE: 05/03/2017 Consultation DISCHARGE DATE: FAMILY PHYSICIAN: STAR BRICENO MD ATTENDING PHYSICIAN: Gabriele Valladares DATE OF CONSULTATION: 05/07/2017 REFERRING PHYSICIAN: MARIKA CARDONA MD Team members reporting include Dr. Valladares; Elaine Suarez, social services analyst; Khalida Camarena RN; Yaima Gottlieb, PT; Janelle Rosas, PT; Sylvia Carbajal, OT; Emily Aguilar, Speech Therapy; Doris Smallwood, therapeutic rec; and Sister Cookie Brown, Pastoral Care. CURRENT STATUS: Alicja is an 86-year-old man, admitted to our inpatient rehab unit on May 03, 2017, with a left first metatarsal osteomyelitis. The patient continues on IV antibiotics. The patient has a history of coronary artery disease, atrial fibrillation, history of DVTs. The patient does have a PICC line. His periarea is red as well as his buttocks. The patient is on a cardiac diet, receives Ensure Enlive 3 times a day. Prealbumin is 13. The patient can transfer sit to supine and supine to sit at contact guard assistance. He can complete a slide board transfer at minimal assistance. He can propel his wheelchair 150 feet at minimal assistance. The patient is dependent when standing. He is very slow. The patient's upper body dressing is currently at minimal assistance; lower body, moderate assistance; help with clothing management; grooming, standby assistance; bathing, contact guard assistance; toilet transfers, minimal to moderate assistance; and toileting, dependent. His goals have been set for standby. Car transfers will be scheduled for Saturday. Initial evaluation was done as well as some information on community for the patient. 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 No pharmacy concerns. DISCHARGE PLAN: The patient is receiving 3 hours of PT, OT Saturday through Saturday. The patient has daily rehab, nursing, and physiatry involvement as well as therapeutic recreational services 4 days per week. The patient has shown functional improvement and is progressing. Please see his plan of care for specific goals. Plan is for the patient to discharge in approximately 2 to 3 weeks. The patient will likely need to go to another skilled facility as the patient will require more IV antibiotics twice a day. PATIENT'S NAME: ALICJA ESPITIA [facility] AGE: 86 Y [address] ROOM: [address] [address] LOCATION: [facility] ADMIT DATE: 05/03/2017 Consultation DISCHARGE DATE: FAMILY PHYSICIAN: STAR BRICENO MD ATTENDING PHYSICIAN: Gabriele Valladares FOR GABRIELE VALLADARES MD TD/modl /[id number] d: 05/13/172018 t: 06/17/17 [facility], CONSULTATION REPORT
--- NOTE | ~2017-05-03 | DS ---
PATIENT'S NAME: ALICJA ESPITIA [facility] AGE: 86 Y [address] ROOM: [place] [address] LOCATION: [facility] ADMIT DATE: 05/03/2017 Discharge Summary DISCHARGE DATE: FAMILY PHYSICIAN: Matt Flynn MD ATTENDING PHYSICIAN: Nena Valladares This 86-year-old gentleman was admitted to Rehab Unit at [facility], [place], [place], on 05/03/2017, is discharged to home on 06/10/2017. 1. He had unstable gait. 2. Dependent activities of daily and self-care. 3. Status post left first metatarsophalangeal joint osteomyelitis, did undergo per Dr. French. 4. 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 5. Left gastrocnemius recession procedure. 6. Irrigation and debridement of full-thickness 4 cm x 4 cm wound abscess and debridement including skin, subcutaneous tissue, muscle, fascia, and bone. 7. Use of intraoperative fluoroscopy. This was done per Dr. French as I mentioned on 04/25/2017, details on record. He was put on intensive rehab, and was nonweightbearing to start with and then heel weightbearing at the present time on the left lower extremity, and doing well. He is alert and oriented x3. Vitals: Blood pressure 113/66, temperature 98.1, pulse 71, and respirations 16. He is able to transfer and ambulate 150 feet x1 with standby curriculum assistant, and doing well. He had a Doppler study and it was negative of the bilateral lower extremity on 06/08/2017. He is now on the following medications: 1. Tylenol Extra Strength 1000 mg at bedtime. 2. Lipitor 20 mg p.o. daily. 3. Plavix 75 mg p.o. daily. 4. Cardizem 120 mg p.o. daily. 5. Lopressor 50 mg twice daily. 6. Nystatin powder to axilla 3 times daily. 7. Xarelto 15 mg p.o. daily. PATIENT'S NAME: ALICJA ESPITIA [facility] AGE: 86 Y [address] ROOM: [place] [address] LOCATION: [facility] ADMIT DATE: 05/03/2017 Discharge Summary DISCHARGE DATE: FAMILY PHYSICIAN: Matt Flynn MD ATTENDING PHYSICIAN: Nena Valladares 8. Florastor 250 mg p.o. twice daily. He is at the present time able to ambulate at least 150 feet with front- wheeled walker and at times standby curriculum assistant. He is to have outpatient PT/OT 3 times per week for the coming 4 weeks, with Speech 3 times per week for the coming 4 weeks, and we will see him thereafter. He will follow up with Dr. Frost, calculating machine mechanic, as she sees fit. He must follow up with his family physician as soon as possible. He will follow up with me in 4 weeks. He should not drive and/or operate any mechanical or electrical device. FINAL DIAGNOSES: 1. Unstable gait. 2. Dependent activities of daily and self-care. 3. Osteomyelitis of the left metatarsophalangeal, status post excision of the first metatarsophalangeal and gastrocnemius equinus shortening. 4. Left lower extremity deep vein thrombosis. 5. Coronary artery disease with stenting. 6. Peripheral vascular disease. 7. Hypertension. 8. Congestive heart failure. 9. Dyslipidemia. We will at the present time advise that he should follow with his family physician as soon as possible. All his medications given for 1 month and any renewal and/or change of medication is through his family physician, and should follow with his family physician as soon as possible. All the above was explained to him in detail, he verbalized understanding. NENA VALLADARES MD WMS/modl /[id number] d: 06/09/173 t: 06/10/17 1313, DISCHARGE SUMMARY
--- NOTE | ~2017-05-03 | CON ---
PATIENT'S NAME: ALICJA SEPITIA [facility] AGE: 86 Y [address] ROOM: [address] [place], [place] [address] LOCATION: [facility] ADMIT DATE: 05/03/2017 Consultation DISCHARGE DATE: 06/10/2017 FAMILY PHYSICIAN: Matt Flynn MD ATTENDING PHYSICIAN: Gabriele Valladares DATE OF CONSULTATION: 06/05/2017 REFERRING PHYSICIAN: Ramone French MD TEAM MEMBERS REPORTING: Include Dr. Valladares; Elaine Suarez, social media strategist; Julia Snow, RN; Janelle Rosas, PT; Yaima Gottlieb, PT; Sylvia Carbajal, OT; Emily Aguilar, Speech Therapy; Doris Smallwood, therapeutic rec; and Sister Cookie Cee, Pastoral Care. Also, present was Akua from Pharmacy. CURRENT STATUS: Jazmine Valladares is an 86-year-old man, admitted to our inpatient rehab unit following an I and D of left foot wound and left first metatarsal head resection and gastrocnemius recession. The patient has osteomyelitis and is on IV antibiotics. He has a history of DVT. He is able to bear weight now through his heel. He is continent of bowel and bladder. His left axilla is reddened. No pain. The patient is on a cardiac diet, taking Ensure Enlive every day at breakfast. Prealbumin is currently at 26. He can transfer sit- to-supine and ygcplb-je-zcy independently; fvp-ws-zdeof and tzteg-jh-ert standby; and ulu-gl-yaqlx and tiqrh-qc-lzj standby needing cues. He can walk 150 feet with a front-wheeled walker at contact guard assistance to standby assistance with lots of cuing needed and he can climb 4 stairs with 2 railings at contact guard assistance. He has met 3/8 short-term PT goals. The patient can dress his upper body and lower body at standby; grooming mod I; bathing, toilet transfers, and shower transfers standby; and toileting standby assistance. He has met 9/13 long-term OT goals. The patient's comprehension is at standby; language and expression xsvosjg-uc-yvm I; memory minimal zlkihypabw-bh-nwvvgek; and problem solving minimal hvmhwvddqy-oz-hultmrb. The patient has been very open to pastoral care. No pharmacy concerns. DISCHARGE PLAN: The patient is receiving 3 hours of PT, OT, and speech Saturday through Saturday. The patient has daily rehab, nursing, and physiatry involvement as well as therapeutic recreational services. The patient has shown functional improvement and is progressing. Please see his plan of care for specific goals. Plan is for the patient to discharge on June 10, 2017. The patient will be going to a halfway facility here in [place]. PATIENT'S NAME: ALICJA ESPITIA [facility] AGE: 86 Y [address] ROOM: [place] [address] LOCATION: [facility] ADMIT DATE: 05/03/2017 Consultation DISCHARGE DATE: 06/10/2017 FAMILY PHYSICIAN: Matt Flynn MD ATTENDING PHYSICIAN: Gabriele Valladares ELAINE SUAREZ FOR GABRIELE VALLADARES MD TD/modl /[id number] d: 06/23/17 1626 t: 07/05/17 1137, CONSULTATION REPORT
--- NOTE | ~2017-05-03 | HP ---
PATIENT'S NAME: ALICJA ESPITIA [facility] AGE: 86 Y [address] ROOM: [place] [address] LOCATION: [facility] ADMIT DATE: 05/03/2017 History & Physical DISCHARGE DATE: FAMILY PHYSICIAN: STAR BRICENO MD ATTENDING PHYSICIAN: Gabriele Valladares DATE OF SERVICE: This 86-year-old gentleman is admitted for continuous medical treatment and intensive rehabilitation to rehab unit at [facility] on 05/03/2017. 1. Unstable gait, dependent activities and self-care. 2. At high risk of falling. 3. Status post osteomyelitis of first left metatarsal joint with left gastrocnemius equinus shorten Achillis tendon leading to unstable gait, dependent activities of daily living with high risk of falling. 4. He is at the present time nonweightbearing on the left side. PHYSICAL EXAMINATION: GENERAL: At the present time alert and oriented. VITAL SIGNS: Vitals are as follows on admission: Blood pressure 135/89, temperature 98.2, pulse 104, respirations 20. He is 5 feet 5 inches foot tall and weighs 86.6 kg. ALLERGIES: NO KNOWN DRUG ALLERGIES. PAST MEDICAL HISTORY: Significant as follows. 1. Coronary artery disease, status post stenting. 2. Paroxysmal atrial fibrillation. 3. Peripheral vascular disease. 4. Left lower extremity DVT per history. 5. Hypertension. MEDICATIONS: He is at the present time on the following medications. 1. IV twice daily. 2. Tylenol extra-strength 1000 mg p.o. at night at bedtime. 3. Plavix 75 mg p.o. daily. 4. Cardizem CD 120 mg p.o. daily. 5. Lopressor 50 mg twice daily p.o. 6. Florastor 250 mg twice daily. 7. NaCl 250 mL 0.9% bag as per protocol IV as needed. 8. Tylenol 650 q.6 hours, do not exceed acetaminophen 4 g q.24 hours. PATIENT'S NAME: ALICJA ESPITIA [facility] AGE: 86 Y [address] ROOM: [place] [address] LOCATION: [facility] ADMIT DATE: 05/03/2017 History & Physical DISCHARGE DATE: FAMILY PHYSICIAN: STAR BRICENO MD ATTENDING PHYSICIAN: Gabriele Valladares 9. Dulcolax 10 mg rectally p.r.n. as needed. 10. Soma 350 mg q.6 hours as needed p.r.n. 11. Chloraseptic q.2 hours as needed p.r.n. 12. Benadryl 25 to 50 mg q.6 hours as needed. 13. Milk of magnesia 30 mL p.o. as needed. 14. Percocet 5/325 1 to 2 tablets p.o. q.4 hours. Do not exceed acetaminophen 4 g q.24 hours. 15. Fleet enema 133 mL rectally p.r.n. as needed. 16. Nitrostat 0.4 mg sublingually as needed p.r.n. 17. Lipitor 20 mg p.o. daily. 18. Lasix 20 mg p.o. daily. 19. Xarelto 15 mg p.o. twice daily for 20 days and then 50 mg p.o. daily. 20. Digoxin 0.25 mg p.o. daily on 05/03 and 0.125 mg p.o. daily thereafter. LABORATORY DATA: At the present time his CBC is as follows: White BC 8.6, RBC 3.60, hemoglobin 10.8, hematocrit 33.2, and platelets 278. CMS: Sodium 142, potassium 4.3, chloride 109, CO2 27, BUN 21, creatinine 1.6, and glucose 87. ESR is 55. UA is within normal limits, grossly. Prealbumin is 13.0. PLAN: The patient can do assistive to active range of motion. He is followed by the [facility] nurse also. We will put on intensive PT/OT, 3 hours per day, 15 hours per week for the coming 2 weeks aiming to discharge home at modified independence. We will keep on hospitalist, Dr. French and Dr. Frost, construction lineman to follow as necessary. All the above was explained to him in detail. He verbalized understanding and agreement. GABRIELE VALLADARES MD PATIENT'S NAME: ALICJA ESPITIA [facility] AGE: 86 Y [address] ROOM: [place] [address] LOCATION: [facility] ADMIT DATE: 05/03/2017 History & Physical DISCHARGE DATE: FAMILY PHYSICIAN: STAR BRICENO MD ATTENDING PHYSICIAN: Gabriele Valladares/nelly /[id number] D: [id number] T: [id number] HISTORY & PHYSICAL
--- NOTE | ~2017-05-03 | ENPV ---
Vascular Lower Extremities DVT Study Procedure Demographics Patient Name ALICJA ESPITIA Date of Study 05/06/2017 Patient Number [id number] Gender Male Date of 1930 Age 86 Visit Number [id number] Height Accession Number [id number] Weight Room Number G3291 BSA BMI Referring Gabriele Aragonman Interpreting Byron Pinto MD Physician Physician Physician Ordering Physician Accessibility Lift Technician Portrait Artist Kailey Mina BS, RT Conclusions Summary There is sub-acute deep vein thrombosis in one of three left femoral veins extending proximal to distal. There is sub-acute deep vein thrombosis in the left popliteal vein. Chronic deep vein thrombosis is noted in the left gastrocnemius vein. The left posterior tibial and peroneal veins were not imaged due to dressings. Thrombus noted in bilateral greater saphenous veins. Procedure Type of Study: Veins:Lower Extremities DVT Study, Lower Extremity Left. Indications for Study:DVT, History of. Additional Indications:F/U DVT left lower extremtiy Allergies - No known allergies. Patient Status:Routine. Study Location:Inpatient Portable. Technical Quality:Adequate visualization. Velocities are measured in cm/s ; Diameters are measured in cm Right Lower Extremities DVT Study Measurements Right 2D and Doppler Measurements + + + + +------+------+ + !Location !Visualized!Compressibility!Thrombosis!Signal!Reflux!Reflux ! ! ! ! ! ! ! !(sec) ! + + + + +------+------+ + !GSV Thigh !Yes !Partial !Sub-acute !Phasic! ! ! + + + + +------+------+ + !Common !Yes !Yes !None !Phasic! ! ! !Femoral ! ! ! ! ! ! ! + + + + +------+------+ + Left Lower Extremities DVT Study Measurements Left 2D and Doppler Measurements +---------+ + + + +------+--------+ !Location !Visualized!Compressibility!Thrombosis!Signal !Reflux!Reflux ! ! ! ! ! ! ! !(sec) ! +---------+ + + + +------+--------+ !GSV Thigh!Yes !Partial !Sub-acute !Phasic !No ! ! +---------+ + + + +------+--------+ !Common !Yes !Yes !None !Phasic !No ! ! !Femoral ! ! ! ! ! ! ! +---------+ + + + +------+--------+ !Prox !Yes !Partial !Sub-acute !Diminished!No ! ! !Femoral ! ! ! ! ! ! ! +---------+ + + + +------+--------+ !Mid !Yes !No !Sub-acute !Diminished!No ! ! !Femoral ! ! ! ! ! ! ! +---------+ + + + +------+--------+ !Dist !Yes !Partial !Sub-acute !Diminished!No ! ! !Femoral ! ! ! ! ! ! ! +---------+ + + + +------+--------+ !Popliteal!Yes !Partial !Sub-acute !Diminished!No ! ! +---------+ + + + +------+--------+ !Gastroc !Yes !No !Chronic !Absent !No ! ! +---------+ + + + +------+--------+ Signature dtt: HELGA TROY dtd: 05/06/17 1109 Physician Self Edit
--- NOTE | ~2017-05-03 | CON ---
PATIENT'S NAME: ALICJA ESPITIA [facility] AGE: 86 Y [address] ROOM: [address] [place] [address] LOCATION: [facility] ADMIT DATE: 05/03/2017 Consultation DISCHARGE DATE: FAMILY PHYSICIAN: STAR BRICENO MD ATTENDING PHYSICIAN: Gabriele Valladares DATE OF CONSULTATION: 05/14/2017 REFERRING PHYSICIAN: MARIKA CARDONA MD Team members reporting include Dr. Valladares; Elaine Suarez, social services assistant; Julia Snow, RN; Janelle Rosas, PT; Yaima Gottlieb, PT; Sylvia Carbajal, OT; Emily Aguilar, Speech Therapy; Doris Smallwood, therapeutic rec; and Sister Cookie Brown, [facility]. CURRENT STATUS: Alicja is an 86-year-old man, admitted to our inpatient rehab unit on May 03, 2017, following an I and D of his left foot wound, left first metatarsal head resection. 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 He continues to be on IV antibiotics twice a day. The patient has a history of coronary artery disease, status post stenting, paroxysmal atrial fibrillation, peripheral vascular disease, left lower extremity DVT per history, and hypertension. The patient is continent of bowel, occasionally incontinent of bladder. He has not venous staining on his lower extremities. His perineum is excoriated. He is on a cardiac diet, p.o. intake is 86% for 10 meals, takes oral supplements 100%. Weight on 05/07 was 202 pounds. Prealbumin is 25. Continues with Ensure Enlive twice a day. The patient can transfer sit to supine and supine to sit at mod I. Sit to stand and stand to sit, bed to chair and chair to bed, standby assistance. Stairs have not been done yet for safety. The patient can propel his wheelchair 150 feet at standby assistance with extra time. He has met 2/7 short-term PT goals. The patient can dress his upper body at standby; lower body, max assistance to minimal assistance; grooming, standby to independence. Toilet transfer, standby to contact guard assistance; toileting is moderate assistance; shower transfers, minimal assistance. Feeding is standby to independence. Comprehension is stand-by assistance. Language and expression, mod I. Memory minimal assistance. Problem solving, standby. Car transfers are currently contact guard assistance using a slide board. He is working on leisure tasks with speech therapy. He is working on memory. He likes to write various things on his calendar. DISCHARGE PLAN: The patient is receiving 3 hours of PT, OT, and speech Saturday through Saturday. The patient has daily rehab, nursing, and physiatry involvement as well as therapeutic recreational services 4 days per week. The patient has shown functional improvement and is progressing. Please see his plan of care for PATIENT'S NAME: ALICJA ESPITIA [facility] AGE: 86 Y [address] ROOM: [place] [address] LOCATION: [facility] ADMIT DATE: 05/03/2017 Consultation DISCHARGE DATE: FAMILY PHYSICIAN: STAR BRICENO MD ATTENDING PHYSICIAN: Gabriele Valladares specific goals. Plan is for patient to discharge as soon as an alternate facility can be obtained. ELAINE SUAREZ FOR GABRIELE VALLADARES MD TD/modl /[id number] d: 05/31/17 2241 t: 06/17/17 1415, CONSULTATION REPORT
--- NOTE | ~2017-05-03 | CON ---
PATIENT'S NAME: ALICJA ESPITIA [facility] AGE: 86 Y [address] ROOM: [address] [place], [place] [address] LOCATION: [facility] ADMIT DATE: 05/03/2017 Consultation DISCHARGE DATE: FAMILY PHYSICIAN: STAR BRICENO MD ATTENDING PHYSICIAN: Gabriele Valladares DATE OF CONSULTATION: 05/29/2017 REFERRING PHYSICIAN: MARIKA CARDONA MD Team members reporting include Dr. Valladares; Elaine Suarez, farrowing worker; Haylie Marti, AMANDA; Yaima Gottlieb, PT; Janelle Rosas, PT; Sylvia Carbajal, OT; Emily Aguilar, Speech Therapy; Doris Smallwood, Therapeutic rec; and Sister Cookie Cee, [facility] Care. CURRENT STATUS: Alicja is an 86-year-old man admitted to our Inpatient Rehab Unit on May 03, 2017 with osteomyelitis of his left foot. He is getting IV antibiotics twice a day. He is occasionally incontinent of bladder. He is on a cardiac diet, taking Ensure Enlive b.i.d. He can transfer [id number] and [id number] independently, sit to stand by contact guard assistance with cueing, and bed to chair with contact guard assistance using a front-wheeled walker. He can ambulate 50 feet with the front-wheeled walker at contact guard assistance. He is only to put weight on his heel. Gait training is to be done in PT only. He has met 4/8 long-term PT goals. The patient can dress his upper body at standby, lower body with contact guard assistance, grooming standby, bathing standby, toilet and shower transfers with contact guard assistance, and toileting with contact guard assistance. He does need frequent verbal cues. He has met 4/13 long-term OT goals. The patient's comprehension is at standby to mod I, language expression is mod I, memory is minimal to standby, and problem solving is standby. Visual aids do help patient. He can complete car transfers with standby. He has lots of obdulia. His antibiotics now will be stopped on June 06, 2017. DISCHARGE PLAN: The patient is receiving 3 hours of PT, OT, and Speech Saturday through Saturday. The patient has daily Rehab, Nursing, and Physiatry involvement as well as Therapeutic Recreational Services 4 days per week. The patient has shown functional improvement and is progressing. Please see his plan of care for specific goals. Plan is for patient to discharge as soon as placement can be obtained. We are having difficulty with placement as the patient is on IV antibiotics that are very expensive. They are to be done on June 06 now. However, Nursing Homes are also having a hard time with the twice a day antibiotics in their facilities. PATIENT'S NAME: ALICJA ESPITIA [facility] AGE: 86 Y [address] ROOM: [address] [address] LOCATION: [facility] ADMIT DATE: 05/03/2017 Consultation DISCHARGE DATE: FAMILY PHYSICIAN: STAR BRICENO MD ATTENDING PHYSICIAN: Gabriele Valladares ELAINE SUAREZ FOR GABRIELE VALLADARES MD TD/modl /[id number] d: 05/31/17 2329 t: 06/17/17 1420, CONSULTATION REPORT
--- NOTE | ~2017-05-03 | ENPV ---
Vascular Lower Extremities DVT Study Procedure Demographics Patient Name ALICJA ESPITIA Date of Study 06/08/2017 Patient Number [id number] Gender Male Date of 1930 Age 86 Visit Number [id number] Height Accession Number [id number] Weight Room Number G3425 BSA BMI Referring Gabriele Aragonman Interpreting Byron Pinto MD Physician Rina Gutierrez MD Physician Physician Ordering Physician It Security Manager Weapons Officer Marine Mcdaniel T, [facility] Conclusions Summary No evidence of deep vein thrombosis or superficial thrombophlebitis in the right lower extremity . There is chronic occlusive deep vein thrombosis in the one of three left femoral vein(s). Procedure Type of Study: Veins:Lower Extremities DVT Study, Venous Duplex Lower Extremity Bilateral. Indications for Study:Previous DVT. Allergies - No known allergies. Patient Status:Routine. Study Location:Inpatient Portable. Technical Quality:Adequate visualization. - Preliminary reported to:Alexys Pandey RN. Velocities are measured in cm/s ; Diameters are measured in cm Right Lower Extremities DVT Study Measurements Right 2D and Doppler Measurements + + + + +------+------+ + !Location !Visualized!Compressibility!Thrombosis!Signal!Reflux!Reflux ! ! ! ! ! ! ! !(sec) ! + + + + +------+------+ + !GSV Thigh !Yes !Yes !None !Phasic! ! ! + + + + +------+------+ + !Common !Yes !Yes !None !Phasic! ! ! !Femoral ! ! ! ! ! ! ! + + + + +------+------+ + !Prox !Yes !Yes !None !Phasic! ! ! !Femoral ! ! ! ! ! ! ! + + + + +------+------+ + !Mid Femoral!Yes !Yes !None !Phasic! ! ! + + + + +------+------+ + !Dist !Yes !Yes !None !Phasic! ! ! !Femoral ! ! ! ! ! ! ! + + + + +------+------+ + !Popliteal !Yes !Yes !None !Phasic! ! ! + + + + +------+------+ + !PTV !Yes !Yes !None !Phasic! ! ! + + + + +------+------+ + !Peroneal !Yes !Yes !None !Phasic! ! ! + + + + +------+------+ + Left Lower Extremities DVT Study Measurements Left 2D and Doppler Measurements + + + + +------+------+ + !Location !Visualized!Compressibility!Thrombosis!Signal!Reflux!Reflux ! ! ! ! ! ! ! !(sec) ! + + + + +------+------+ + !GSV Thigh !Yes !Yes !None !Phasic! ! ! + + + + +------+------+ + !Common !Yes !Yes !None !Phasic! ! ! !Femoral ! ! ! ! ! ! ! + + + + +------+------+ + !Prox !Yes !Yes !None !Phasic! ! ! !Femoral ! ! ! ! ! ! ! + + + + +------+------+ + !Mid Femoral!Yes !Yes !None !Phasic! ! ! + + + + +------+------+ + !Dist !Yes !Yes !None !Phasic! ! ! !Femoral ! ! ! ! ! ! ! + + + + +------+------+ + !Popliteal !Yes !Yes !None !Phasic! ! ! + + + + +------+------+ + !PTV !Yes !Yes !None !Phasic! ! ! + + + + +------+------+ + !Peroneal !Yes !Yes !None !Phasic! ! ! + + + + +------+------+ + Signature dtt: HELGA TROY dtadela: 06/08/17 1233 Physician Self Edit
--- NOTE | ~2017-05-03 | CON ---
PATIENT'S NAME: ALICJA PRUITT [facility] AGE: 86 Y [address] ROOM: [address] [place] [address] LOCATION: [facility] ADMIT DATE: 05/03/2017 Consultation DISCHARGE DATE: FAMILY PHYSICIAN: STAR BRICENO MD ATTENDING PHYSICIAN: Gabriele Valladares DATE OF CONSULTATION: 05/22/2017 REFERRING PHYSICIAN: MARIKA CARDONA MD Team members reporting include Dr. Valladares; Elaine Suarez, social worker school; Julia Snow, RN; Janelle Rosas, PT; Yaima Gottlieb, PT; Sylvia Carbajal, OT; Emily Aguilar, Speech Therapy; Doris Smallwood, therapeutic rec; and Sister Cookie Brown, [facility] care. CURRENT STATUS: Alicja Pruitt is an 86-year-old man, admitted to our inpatient rehab unit with a diagnosis of osteomyelitis in his left foot. He has a history of coronary artery disease and DVTs. The patient is getting nystatin to his groins. We continued to watch his blood pressure. He does have a PICC line, and he is getting IV antibiotics twice a day. The patient is continent of bowel and bladder. He has dressing and sutures with Steri-Strips. No complaints of pain. He is on a cardiac diet. Prealbumin is 24, taking Ensure Enlive b.i.d. The patient can transfer sit to supine and supine to sit at mod I; bed to chair, standby with cues for setup. He can propel his wheelchair 100 feet at mod I level, up and down a ramp at standby. He is able to stand very limitedly. No gait is being attempted as he continues to be non-weight bearing. He has met 4/8 long-term PT goals. The patient can dress his upper body at standby; lower body, standby using adaptive equipment, grooming, standby; bathing, standby; toilet and shower transfers, contact guard assistance; toileting, standby. He has met 5/13 long-term OT goals. Comprehension is at standby to mod I. memory, min assistance. Problem solving, standby. The patient does have a good supportive jain family. He continues to have cognition issues. They are using a memory log for him. 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 DISCHARGE PLAN: The patient is receiving 3 hours of PT, OT, and speech from Saturday through Saturday. The patient has daily rehab, nursing, and physiatry involvement as well as therapeutic recreational services 4 days per week. The patient has shown functional improvement and is progressing. Please see his plan of care for specific goals. Plan is for patient to discharge as soon as placement can be obtained. We are having difficulty with placement as the patient is on a very expensive IV antibiotic, and local nursing homes are not wanting to take due to the cost as well as the frequency of antibiotics. PATIENT'S NAME: ALICJA PRUITT [facility] AGE: 86 Y [address] ROOM: [place] [address] LOCATION: [facility] ADMIT DATE: 05/03/2017 Consultation DISCHARGE DATE: FAMILY PHYSICIAN: STAR BRICENO MD ATTENDING PHYSICIAN: Gabriele Valladares ELAINE SUAREZ FOR GABRIELE VALLADARES MD TD/modl /[id number] d: 05/31/17 2251 t: 06/17/17 1418, CONSULTATION REPORT
[2017-05-03 15:46] LABS: BILIRUBIN URINE NEGATIVE (NEGATIVE); BLOOD URINE NEGATIVE /UL (NEGATIVE); COLOR URINE YELLOW (YELLOW); GLUCOSE URINE NEGATIVE (NEGATIVE); KETONE URINE NEGATIVE (NEGATIVE); LEUKOCYTES URINE NEGATIVE /UL (NEGATIVE); NITRITE URINE NEGATIVE (NEGATIVE); PROTEIN URINE NEGATIVE (NEGATIVE); SPEC GRAVITY URINE 1.015 (1.003-1.035); TURBIDITY URINE CLEAR (CLEAR); UROBILINOGEN URINE NORMAL (NORMAL)
--- NOTE | 2017-05-03 16:57 | NUR ---
Significant Event: Patient was admitted to [facility] at 1045. Patient had a left metatarsal osteomyleilits with repair. IV antibiotics. PICC line intact. History of paroxysmal a-fib. CAD, New DVT to left femoral. Chronic kidney disease, CHF. Non-weight bearing to left leg with 2 assist slideboard transfer or full lift. Needs ortho shoe to left leg when up. Recent DVT left leg. Compression stocking and pneumatic to right leg only. Left leg covered in dressing. Due to be changed on Saturday or Saturday. Is incontinent at times. Need to help him with the urinal. Very reddened periarea. Aloe applied. Hard of hearing. Needs alarms. Do not leave alone with bathroom. Follow up: Venous duplex ordered for Saturday for f/u DVT to left leg.
--- NOTE | 2017-05-04 03:35 | NUR ---
Significant Event: New admit yesterday. Patient is alert and mostly oriented. Did say a few thing that did not make much sense to me. Can be forgetful. Is [place]. Is 2 assist slide board transfer or we can use the lift if needed. Has a HX of a broken scapula to his right arm movement is limited. PICC to his upper left arm gets IV ABX infusions BID. PICC flushes well with good blood return. Left Metatarsal Osteo s/p I&D of bone resection, plus a recent DVT to his left leg. Dressing to his left lower leg see dressing orders to be changed every 2-3 days. Is NWB to that left leg and has a shoe he is to wear when up. Pneumatic on only his right leg. HX of AFib. Follow up: Venous Doppler scheduled for Saturday.
[2017-05-04 04:59] LABS: BASOPHIL % 0.2 %; EOSINOPHIL # 0.3 K/uL (0.0-0.5); EOSINOPHIL % 3.2 %; HEMATOCRIT 33.2 % (33.0-50.0); HEMOGLOBIN 10.8 g/dL (11.0-16.0); IMMATURE GRANULOCYTE # 0.1 K/uL (0.0-0.3); IMMATURE GRANULOCYTE % 0.7 %; LYMPHOCYTE # 1.6 K/uL (0.8-4.0); LYMPHOCYTE % 18.9 %; MCHC 32.5 gm/dL (32.0-36.5); MCV 92.2 fl (83.0-98.0); MONOCYTE # 0.8 K/uL (0.0-1.0); MONOCYTE % 9.5 %; MPV 9.6 fl (9.4-12.4); NEUTROPHIL # (ANC) 5.8 K/uL (1.4-9.0); NEUTROPHIL % 67.5 %; NRBC % 0 /100WBC (0-0.00); PLATELET COUNT 278 K/uL (150-450); RDW-CV 14.6 % (11.9-14.6); WBC 8.6 K/uL (4.0-11.0)
[2017-05-04 05:04] LABS: ALBUMIN 2.7 gm/dL (3.5-5.0); ANION GAP 10.3 (10.0-19.0); CALCIUM 8.4 mg/dL (8.5-10.5); CREATININE 1.6 mg/dL (0.6-1.3); POTASSIUM 4.3 mMol/L (3.7-5.1); TOTAL BILIRUBIN 0.3 mg/dL (0.0-1.5); TOTAL PROTEIN 6.6 g/dL (6.0-8.4)
--- NOTE | 2017-05-04 14:27 | NUR ---
Significant Event: PATIENT UP 2 ASSIST, SLIDE BOARD. SLIDES TO RIGHT SIDE, NWB TO LEFT LEG. ALERT AND ORIENTED BUT FORGETFUL. DENIES PAIN. DRESSING TO LEFT LOWER LEG. PICC TO LEFT UPPER ARM, GOOD BLOOD RETURN. RECEIVES IV ANTIBIOTICS. MEDS WHOLE WITH WATER. DENIES PAIN. DOPPLER SCHEDULED FOR SATURDAY. [place]. NEEDS HELP WITH URINAL AT TIMES. BM TODAY ON COMMODE. ORTHOPEDIC SHOE TO LEFT FOOT WHEN UP. JOBST STOCKING TO RIGHT LEG. NO COMPRESSION SOCKS OR PLEXIPULSES TO LEFT. Follow up:
--- NOTE | 2017-05-05 03:00 | NUR ---
Significant Event: Patient alert and mostly oriented can be forgetful. VSS. Metoprolol held per parameters. HX of A Fib HR irregular. 1-2 assist slide board transfers. NWB to his left foot has an orthopedic shoe he is to wear when transfering. Dressing to his left foot intact, needs changed today. Patient denies pain or discomfort no numbness or tinglings, good cap refill. PICC to his upper left arm, flushes well with good blood return. IV ABX BID. Can be incontinent at times but can use urinal, just may need reminded. Is [place]. Follow up:
--- NOTE | 2017-05-05 14:42 | NUR ---
Significant Event: PATIENT UP 2 ASSIST SLIDEBOARD TRANSFER. NWB TO LEFT LEG, TRANSFERS BETTER TO RIGHT SIDE. UP IN CHAIR, UP TO COMMODE TODAY. BM TODAY. USING URINAL ON HIS OWN WELL. CALLS APPROPRIATLEY BUT IS SLIGHTLY FORGETFUL. PICC TO LEFT UPPER ARM, GOOD BLOOD RETURN. IV ANTIBIOTICS BID. DRESSING TO LEFT LEG TO BE CHANGED 05/07. HEART RATE IRREGULAR, HX AFIB. VITALS STABLE ON ROOM AIR. TAKES MEDS WHOLE WITH WATER. FOLLOWS INSTRUCTIONS WELL. JOBST STOCKING TO RIGHT LEG, PLEXIPULSE AT NIGHT, NO DVT PROPHYLAXIS ON LEFT LEG. VENOUS DOPPLER REPEAT TOMORROW TO LEFT LEG DUE TO PREVIOUS DVT. Follow up:
--- NOTE | 2017-05-06 02:40 | NUR ---
Significant Event:A/O some forgetfulness. 2 assist slideboard transfer; NWB to Left Leg. Transfers better to right side. PICC line to left arm; flushes and aspirates well. Iv antibiotics infused BID. Heart rate irregular, history of AFIB. VSS on room air. Uses urinal appropriately at bedside. Left leg dressing intact. Right leg pnuematics during the night, compression stocking during the day. No DVT prophylaxsis to left leg r/t dvt. Venous doppler this morning to left leg check previous dvt. Denies pain. Meds whole with water. Bed alarm on. Call light within reach. Follow up:TRanfers. Venous doppler to left leg this morning.
[2017-05-06 04:51] LABS: BASOPHIL % 0.4 %; EOSINOPHIL # 0.3 K/uL (0.0-0.5); EOSINOPHIL % 3.6 %; HEMATOCRIT 33.9 % (33.0-50.0); HEMOGLOBIN 10.7 g/dL (11.0-16.0); IMMATURE GRANULOCYTE # 0.1 K/uL (0.0-0.3); IMMATURE GRANULOCYTE % 0.9 %; LYMPHOCYTE # 1.5 K/uL (0.8-4.0); MCH 28.8 pg (27.0-34.0); MCHC 31.6 gm/dL (32.0-36.5); MCV 91.4 fl (83.0-98.0); MONOCYTE # 0.8 K/uL (0.0-1.0); MONOCYTE % 10.8 %; MPV 9.2 fl (9.4-12.4); NEUTROPHIL # (ANC) 5.1 K/uL (1.4-9.0); NEUTROPHIL % 65.3 %; NRBC % 0 /100WBC (0-0.00); PLATELET COUNT 291 K/uL (150-450); RBC 3.71 M/uL (3.50-5.50); RDW-CV 14.3 % (11.9-14.6); WBC 7.8 K/uL (4.0-11.0)
[2017-05-06 05:07] LABS: ALBUMIN 2.8 gm/dL (3.5-5.0); ANION GAP 9.6 (10.0-19.0); CALCIUM 7.9 mg/dL (8.5-10.5); CREATININE 1.6 mg/dL (0.6-1.3); POTASSIUM 4.6 mMol/L (3.7-5.1); TOTAL PROTEIN 6.5 g/dL (6.0-8.4)
[2017-05-06 05:09] LABS: TOTAL BILIRUBIN 0.2 mg/dL (0.0-1.5)
--- NOTE | 2017-05-06 16:41 | NUR ---
Significant Event:PATIENT ALERT BUT IS FORGETFUL. VSS. TRANSFERS WITH 2 ASSIST, GAIT BELT SCOOT/PIVOT TRANSFER. IS UNSTEADY WITH TRANSFERS. DOES BETTER WITH SCOOTS BUT NEEDS TO STAND FOR BATHROOM TRANSFERS. HAS DENIED PAIN TODAY. UP IN RECLINER BETWEEN THERAPIES. PICC LINE IN LEFT UPPER ARM PATENT WITH GOOD BLOOD RETURN. FAMILY AT BEDSIDE THIS AFTERNOON. NEEDS REMINDED OF NO WEIGHT BEARING ON LEFT FOOT BUT DOES WELL. NO OTHER COMPLAINTS. Follow up:
--- NOTE | 2017-05-07 03:23 | NUR ---
Significant Event:A/O, some forgetfulness. 2 assist slideboard transfer, surgical shoe to left foot with all transfers. NWB to L) leg. Dressing to be changed today. Good CSM. No DVT PPX to Left leg. Compression stocking to right leg daily; calf pump at night. PICC to L) arm flushes and aspirates well. Dressing occlusive, change on Thursday 05/10. Antibiotic infused without issue. Voids per urinal. BM this shift. [place] to groin and buttocks;redness. [place]. History of A-fib, irregular HR. VSS on room air. Call light with in reach. Bed alarm on. Cooperative with cares. Follow up:Transfers. Dressing change to L leg.
--- NOTE | 2017-05-07 08:33 | NUR ---
D: Therapeutic Recreation Initial Assessment on the 05/07/17. I: Patient seen for 2 units to begin initial evaluation. Pt has dx of metatarsal removal on LLE, NWB on LLE. R: Patient's current living situation and status: house in town Home entrance steps: 4 Living with: son/ukagwqwv-rm-doo Spouses name: divorce # of children: 4 Driving: no, family provides transportation Ambulating: mod I Equipment: cane Hand Dominance: Right Grinding Room Supervisor strength: not tested Eye sight: glasses but lost Reading ability: N/T Hearing: SAMISH Speech: clear Cognition: impaired Comprehension: fair Following directions: yes Initiating: yes Eye contact: good Affect: bright COMMUNITY INVOLVEMENT: out to eat, past did [employer] weekly but not since move, appointment LEISURE INTERESTS: read (books, newspaper, Bible), watch TV, sports, family has dog, past had horses, word puzzles, jigsaw puzzles, occ. solitaire Patient is referred by medical staff for treatment and evaluation in the following areas: Community Skills, Functional Leisure Skills, Participation, Leisure Education/Behaviors, Family Education, Cognitive, Emotional. Information obtained: Interview, Chart Review, Family resource , Observation, other. BARRIERS TO LEISURE: Financial, Physical, Transportation Patient determined to be: APPROPRIATE FOR THERAPEUTIC RECREATION ASSESSMENT. TREATMENT WILL INCLUDE: Community living skills training Functional leisure development Physical skills development Cognitive skills development Social skills development Leisure education Emotional/behavioral adaptation Family education Community resources/packet TARGET EQUIPMENT/INFORMATION: Parking Permit ? if still has one Community Resources Energy conservation in community setting Van/Service/Taxi Scrip Adapted Leisure Equipment Stress management/Relaxation techniques Functional car transfers Leisure Education Behaviors: Attitude, Awareness, Participation. Patient functional skills level and potential: Guarded, pt demonstrates poor mobility, endurance and concerns for coping. Patient oriented ot TR services on Rehab unit. Pt/family provided input into goals setting and plan of care. Pt's goal is to return home. P: Target date set with personal goals established. Will continue with POC focusing on pt/family training and education. For additional information please see Nursing Data Base, PT, OT, CM, ST, initial assessments to GIR and Interdisciplinary Assessments.
--- NOTE | 2017-05-07 09:04 | NUR ---
A-SCREENED D/T LOS; NEW ADMIT TO [facility] S/P L)METATARSAL OSTEOMYELITIS REPAIR. HT: 65 IN. WT: 91.7 KG (WHEELCHAIR SCALE) BMI: 33.6 LABS: NA 141, K+ 4.6, GLU 87, BUN 20, MODERATE NEEDS TEACHER 1.6, ALB 2.8, PREALB 13.0, CRP 0.86 MEDS: XARELTO, LIPITOR, LASIX, PRN BOWEL MEDS DIET RX: CARDIAC W/ENSURE ENLIVE TID. PO INTAKE HAS BEEN 25-100%; AVG IS 77%. EST NUTR NEEDS: 2821-3241 KCALS (20-25 KCALS/KG) 110-128 GM PROTEIN (1.2-1.4 GM/KG) 1 ML FLUID/KCAL D-NOT AT NUTRTION RISK; NO NUTRITION DX IDENTIFIED I-WILL DECREASE ENSURE ENLIVE TO BID TO MAINTAIN NUTRITION STATUS M/E-WILL ASSIST NEEDED
--- NOTE | 2017-05-07 15:25 | NUR ---
Significant Event: Pt up to w/c and chair with scoot transfer 1-2 assist, NWB on left. Tolerated well, able to maintain weight bearing status. Dressing to LLE changed by Charles ERICKSON. New dressing placed, No new orders. Pt pleasantly confused at times. PICC line to Left upper arm, remains on ATX. Redness to groins and coccyx remain, aloe in use. Pt takes meds well with water. Sp hose on rt leg only. Follow up: activity, safety, alarms, ATX, PICC line, maintain skin integrity
--- NOTE | 2017-05-07 17:31 | NUR ---
CARES AND CHARTING PERFORMED BY SN MURRAY. PRIMARY NURSE WITH STUDENT NURSE FOR CARES. CHARTING REVIEWED AND AGREE WITH CHARTING.
--- NOTE | 2017-05-08 02:49 | NUR ---
Significant Event:A/O with periods of forgetfulness. 2 assist slideboard/scoot transfer. PICC to Left upper arm, flushes and aspirates well. IV antibiotic infused without issue. Dressing scheduled for change on Saturday. Dressing to left leg intact (changed on 05/07 by Charles ERICKSON). Cap refill less than 3. Normal sensation, some swelling noted. No DVT prophylaxsis to left leg. Compression stocking to Right leg daily, calf pump at night. Uses urinal for voiding, groin and buttocks some redness-aloe vesta applied. VSS on room ait, irregular heart rate r/t A-fib. Denies pain. Tylenol at night for rest.[place]. Call light in reach, bed alarm on. Follow up:Transfers. Dressing intact.
[2017-05-08 05:58] LABS: ANION GAP 11.3 (10.0-19.0); CALCIUM 8.2 mg/dL (8.5-10.5); CREATININE 1.6 mg/dL (0.6-1.3); POTASSIUM 4.3 mMol/L (3.7-5.1)
--- NOTE | 2017-05-08 12:07 | NUR ---
D: TR progress note for 05/08/17. I: Pt seen for 2 units at 1100 in group session for education on safety when around pets/animals, group participation, and leisure education. management, and coping strategies . R: Pt seen for functional skills building working on relaxation techniques, stress/pain management, continued education on coping skills using animals for Animal Assisted Therapy. Pt completed functional communication skills independently which included introduction and shared with group about family pets. Pt independently with interaction with animals, volunteers and peers, SBA when handling and maneuvering animals during Animal Assisted Therapy utilizing BUE with goof safety awareness and good bilateral scanning. Education done on safety with ambulation/mobility in homes when around animals, safety with possibility of poor skin integrity and utilizing pets to assist with coping and stress/pain management when opportunity available. P: Will continue to see to address goals and plan of care.
--- NOTE | 2017-05-08 15:28 | NUR ---
Significant Event: Pt alert and oriented x3. PICC to left upper arm, antiobiotic twice daily. PICC flushes no complications. Left leg dressing changed 05/07. PICC dressing changed 05/08, dressing was rolling. Pt denies having any pain. Pt can be forgetful and mumbles at times. Pt is two assist scoot or slide board, no weight bearing on left foot. Pt uses urinal at bedside. Pt is hard of hearing. Pt wears compression sock to rt leg during the day. Pt has irregular heartbeat due to A-fib. Pt takes all of his pills at once with water and tolerates it very well. Nystatin and aloe vesta cream ordered TID. Pt cooperative with cares. Follow up:
--- NOTE | 2017-05-08 18:29 | NUR ---
Cares and charting performed by SN Clark. Primary nurse with student nurse for cares. Charting reviewed and agree with cares.
--- NOTE | 2017-05-09 05:00 | NUR ---
Alert and oriented x3. Occas periods of forgetfullness. 2 assist slideboard or scoot transfer. In bed entire shift. Voids per urinal with sm stress incont. PICC line to left antecubital. IV anitbiotics bid. Leg dsing dry and intact. No wt bearing to left foot. Veinogram yest showed DVT x1 to left leg. Denies pain and slept well.
--- NOTE | 2017-05-09 13:03 | NUR ---
Significant Event: PATIENT UP 2 ASSIST SLIDEBOARD, TRANSFER TO RIGHT SIDE, NWB TO LEFT LEG. HAS A DVT TO LEFT LOWER LEG. DRESSING TO LEFT LEG TO BE CHANGED ON 05/12. ALERT AND ORIENTED BUT FORGETFUL. COOPERATIVE OF CARES. HAS BEEN CONTINENT OF BOWEL AND BLADDER TODAY. BM TODAY. USES URINAL WELL. DENIES PAIN. PICC TO LEFT UPPER ARM WITH GOOD BLOOD RETURN, IV ANTIBIOTICS BID. NO ISSUES SWALLOWING. NEW ORDER FOR SPEECH THERAPY FOR COGNITIVE SUPPORT. VITALS STABLE ON ROOM AIR. NYSTATIN TO GROIN, RED WITH SKIN INTACT. Follow up:
--- NOTE | 2017-05-09 15:28 | NUR ---
[facility] Case Management Prefunctioning and Psycho-Social Initial Assessment for 05/03/17 and Case Conference Note for 05/07/17 D: Initial Hog ScalderCommercial Electrician and Case Conference note. I: Input from: patient, family, Dr. 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 Prior living situation: one stoy house with basement. Lives with his son and [id number]. Financial resources/expectations: patient has Medicare/no supplement. Resources used: none. Resources available: HHC, outpatient therapy, SNF, [facility], [facility], DME. 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 Monitor for signs and symptoms of depression and anxiety. Legal concerns: none. Discharge goal: home with family. Assessment: Donny is an 86 year old man from [place], [place]. Just moved here from [place] in October. He has been living with son and family. Working on helping patient apply for medicaid for secondary insurance. May need a SNF to continue IV antibiotics. Will follow. Orientation to the program and CM services completed with Donny. Initial plan of care and estimated length of stay discussed, disclosure statement reviewed including patient assessment rights. P: Target date and individual goals established. Please see POC for details. For additional information please see Nursing Data Base, PT, OT, TR, Initial assessments to [facility].
--- NOTE | 2017-05-09 15:34 | NUR ---
D: Mixer Foam Rubber Team Conference Follow up for 05/07/17 and Discharge Note for 05/08/17 I: Input from patient/family R: Met with: patient, family, Dr. Stone, Elaine Suarez LINUX UNIX ENGINEER Discussed rehab plan, patient progress, discharge plan and estimated length of stay of 05/08/17 Patient/Family Preference: Patient and family are in agreement. Anticipated discharge disposition: [facility] SNF Education completed: Education was completed with patient regarding length of stay, progress in therapy and d/c plan. Assessment/Recommendation: Team recommends d/c to SNF. P: Case Coordination: Tracee is a 75 year old woman from [place], [place] admitted after a stroke. She has good famly support. Plan is for patient to go to [facility] on 05/08/17. ID screen completed. Will call patient next week to see how she is doing post discharge.
--- NOTE | 2017-05-10 05:12 | NUR ---
Alert and oriented. Forgetful at times. Is 2 person slideboard assist. No wt bearing to lef leg. Has one DVT to this leg also. Dsing to be changed on 05/12. In bed and voids per urinal this shift. Groin escoriated, with Nystatin cream ordered tid. PICC to left anticubital. BID antibiotics. Takes pills whole in water. On scheduled Tylenol with no PRN meds needed.
--- NOTE | 2017-05-10 13:33 | NUR ---
D: TR progress note for 05/10/17. I: Pt seen for 3 units at 1230 for community integration skills building, functional transfers, and safety awareness. R: Pt seen for functional skills building working on mobility, transfers, and community skills in anticipation for discharge back into community. Pt completed slideboard transfers in/out of vehicle CGA, dependent for slideboard management and max verbal cues for hand placement and technique due to concerns with distractibility in community environment. Pt was SBA for BLE management with cues and seat surface adapted by use of trash bag to ease task. Pt tolerated ride with no C/o pain, discomfort or problems with nausea. P: Will continue to see to address goals and plan of care.
--- NOTE | 2017-05-10 15:51 | NUR ---
Significant Event:PATIENT ALERT BUT IS FORGETFUL THIS SHIFT. VSS. TRANSFERS WITH 1-2 ASSIST, GAIT BELT SLIDEBOARD. IS TRANSFERRING MUCH BETTER TODAY THAN BEGINNING OF WEEK. LEFT FOOT DRESSING REMAINS INTACT. PICC LINE IN LEFT UPPER ARM PATENT AND FLUSHES WELL. ANTIBIOTICS CONTINUE. TAKES MEDS WHOLE WITHOUT DIFFICULTY. HAS DENIED PAIN ALL SHIFT. NO OTHER COMPLAINTS. Follow up:
--- NOTE | 2017-05-11 04:40 | NUR ---
Significant Event: Patient alert and oriented but can be forgetful at times. Transfers 1-2A slideboard. Dressing to L) foot. Uses urinal at night. Up to the bathroom X1. PICC line to L) arm. Receiving IV antibiotics. Nystatin to be applied to groin area due to redness. VSS. Denies pain. Cooperative with cares. Follow up:
--- NOTE | 2017-05-11 14:13 | NUR ---
Significant Event: Patient alert and oriented. Forgetful. Needs alarms at all times. 2 assist with slideboard. Non weight bearing to left leg. Left leg dressing changed today. Wears ortho shoe to left foot with transfers. Has annette to leg area and sutures to left foot area. Groin is reddened. Nystatin ointment applied. Uses urinal but needs help with this at time. Is incontinent at times. PICC line intact and continues on IV antibiotics.
--- NOTE | 2017-05-12 04:50 | NUR ---
Significant Event:Transfers with slideboard 1-2 assist. No weight bear on left foot. Drsg/jeronimo wrap intact to lower left leg, wears wooden shoe with transfers. Periarea reddened, nystatin ointment ordered. PICC to left upper arm with good blood return, PICC drsg/cap changed last night and dated. Forgetful, use alarms. Sys b/p < parameters, lopressor dose held at hs. Follow up: Need weekly w/c weight yet. IV atb infusion via PICC.
--- NOTE | 2017-05-12 11:19 | NUR ---
Significant Event: Patient alert and oriented. Forgetful at times. Needs alarms. 2 assist with slideboard. Non weight bearing to left leg. Dressing to left leg intact. Wears ortho shoe to left foot with transfers. Follow up: Groin it reddened and excoriated. Nystatin ointment. PICC line to left arm intact and continues on IV antibiotics. Incontinent at times. Uses urinal.
--- NOTE | 2017-05-13 01:38 | NUR ---
Significant Event:PICC to left upper arm, good blood return with drsg/cap changed on Sat night. Dressing/acewrap to left lower leg/foot intact, no visible drainage--drsg was changed Sat by nursing staff. Slideboard transfer with 1-2 assist/gaitbelt. Bilat groins red and pruritic--nystatin ointment applied. 110/58, hs lopressor given. Denies pain, no numbness or tingling. Wears ortho shoe to left foot and no wt bearing, does well. Follow up:Check parameters for b/p meds.
[2017-05-13 05:43] LABS: ALT 17 IU/L (12-78); ANION GAP 8.1 (10.0-19.0); AST 13 IU/L (10-40); BLOOD UREA NITROGEN 25 mg/dL (6-24); CALCIUM 8.2 mg/dL (8.5-10.5); CHLORIDE 111 mMol/L (96-110); CO2 27 mMol/L (22-32); CREATININE 1.9 mg/dL (0.6-1.3); ESTIMATED GFR (MDRD EQUATION) 34; POTASSIUM 4.1 mMol/L (3.7-5.1); SODIUM 142 mMol/L (135-145)
[2017-05-13 05:45] LABS: ALK PHOS 92 IU/L (33-138); TOTAL PROTEIN 6.4 g/dL (6.0-8.4)
[2017-05-13 05:46] LABS: TOTAL BILIRUBIN 0.3 mg/dL (0.0-1.5)
[2017-05-13 05:49] LABS: BASOPHIL % 0.4 %; EOSINOPHIL # 0.3 K/uL (0.0-0.5); HEMATOCRIT 36.4 % (33.0-50.0); HEMOGLOBIN 11.7 g/dL (11.0-16.0); IMMATURE GRANULOCYTE % 0.5 %; LYMPHOCYTE # 1.5 K/uL (0.8-4.0); LYMPHOCYTE % 19.9 %; MCH 29.3 pg (27.0-34.0); MCHC 32.1 gm/dL (32.0-36.5); MONOCYTE # 0.9 K/uL (0.0-1.0); MONOCYTE % 11.4 %; MPV 9.6 fl (9.4-12.4); NEUTROPHIL # (ANC) 4.8 K/uL (1.4-9.0); NEUTROPHIL % 63.8 %; NRBC % 0 /100WBC (0-0.00); PLATELET COUNT 236 K/uL (150-450); RDW-CV 14.6 % (11.9-14.6); WBC 7.5 K/uL (4.0-11.0)
--- NOTE | 2017-05-13 10:39 | NUR ---
Significant Event: Patient alert and oriented. Forgetful at times. 2 assist with slideboard. Non weight bearing to left leg. Needs alarms. Wears ortho boot to left foot with transfers. Groin is reddnend and excoriated. Nystatin ointment. Uses urinal but is incontinent at times. Dressing to left foot and leg. Dressing intact with no drainage noted. Dressing due to be changed tomorrow.
[2017-05-14 06:08] LABS: ALBUMIN 3.1 gm/dL (3.5-5.0); CREATININE 1.8 mg/dL (0.6-1.3); TOTAL BILIRUBIN 0.4 mg/dL (0.0-1.5); TOTAL PROTEIN 6.5 g/dL (6.0-8.4)
--- NOTE | 2017-05-14 07:21 | NUR ---
Alert and well oriented. Cooperative with cares. Is 1-2 person gaitbelt slideboard transfer. No wt bearing to left foot. Ortho boot to be on when transferring. Steri strips intact over lt upper leg after suture removal yesterday. Stevie wrap to be changed on Mondays. Reported by day shift that WOC nurse was called and said she will see pt on Sat regarding no improvement to pts groin with Nystatin ointment. CMS drawn from PICC this am. Had good BM this morning. Denies pain.
--- NOTE | 2017-05-14 10:37 | NUR ---
A - NUTRITION FOLLOW-UP. PER RECORD, WT ON 05/07 202# VS CBW OF 187# (W/C WEIGHT). WAS ON DIURETICS, DISCONTINUED ON 05/13, QUESTIONING IF WT LOSS D/T FLUID CHANGES. LABS: CREA 1.8, ALB 3.1, PRE-ALB 25 (WAS 13 ON 05/04) NEW MEDS: XARELTO. DIET: CARDIAC W/ ENSURE ENLIVE BID. INTAKE 86% X10 MEALS, ORAL SUPPLEMENT 100% X1 NOTED. EST NEEDS: 8871-9317 KCAL, 110-128 GRAMS PROTEIN, FLUID NEEDS: 1ML/KCAL D - NUTRITION PROBLEM RESOLVED. I - CONTINUE W/ ENSURE ENLIVE BID TO MAINTAIN NUTRITIONAL STATUS. M/E - GOAL: PT WILL CONTINUE TO CONSUME >75% OF MEALS AND AT LEAST ONE ORAL SUPPLEMENT PER DAY IN 5-7 DAYS.
--- NOTE | 2017-05-14 12:54 | NUR ---
D: TR progress note for 05/14/17. I: Pt seen for 2 units at 1033 for leisure education, fine motor skills, cognitive thinking and coping strategies. R: Pt seen for functional skills building working on motor skills, cognitive task and coping skills doing past leisure task of large jigsaw puzzle to increases independence with leisure task and promote recovery. Pt independent for scanning, identification of correct edges and for sequencing. Pt utilized BUE to manage and maneuver puzzles pieces with good coordination and fine motor skills but fair ROM. Education continued on use to leisure task for pain/stress management and coping with option given to complete in room. P: Will continue to see to address goals and plan of care.
--- NOTE | 2017-05-14 15:36 | NUR ---
Significant Event: Pt is alert and oriented but forgetful at times. NWB to left leg. Up x2 assist with slideboard. Bed and chair alarm used. Ortho boot to left foot to be used with transferes. Groin reddened and excoriated, buttocks reddened. Nystatin ointment applied to both areas. Pt voids clear yellow urine per urinal, but is incontent at times. Cast padding and jeronimo wrap dressing to left foot is clean, dry, and intact. Dressing change due every Saturday. Denies pain. PICC to left upper arm with good blood return. IV antibiotics. Follow up:
--- NOTE | 2017-05-15 02:54 | NUR ---
DENIES PAIN, GETS ROUTINE TYLENOL ES AT HS. LOPRESSOR HELDPER PARAMETERS. BP 106/62. PATIENT FORGETFUL, BUT A/O. IS [place]. UP WITH 2 ASSIST AND SLIDEBOARD. TRANSFERS FAIR. NYSTATIN APPLIED TO BILATERAL GROIN AND BUTTOCKS. AREAS REDDENED. VOIDS PER URINAL. PICC TO LEFT UPPER ARM , HAS IV ANTIBODICS.
--- NOTE | 2017-05-15 11:41 | NUR ---
D: TR progress note for 05/15/17. I: Pt seen for 2 units at 1104 in group session for education on relaxation techniques, stress/pain management, coping strategies, group participation and leisure education. R: Pt seen for functional skills building working on relaxation techniques, stress/pain management, continued education on coping skills and group interaction to promote recovery and increase knowledge of coping strategies. Pt actively participated in session, completed functional social communication skills independently which involved personal introduction of self and identification of ways he dealt with pain/stress prior to hospitalization. Education completed by verbal discussion and modeling on the signs and symptoms the physical stress/pain can cause on the body and it's affects along with identification of coping strategies, relaxation techniques using music, playaways, aromatherapy, breathing exercises and leisure activities. P: Will continue to see to address goals and plan of care.
--- NOTE | 2017-05-15 15:29 | NUR ---
Significant Event:PATIENT ALERT AND ORIENTED BUT IS FORGETFUL. VSS. TRANSFERS WITH 2 ASSIST, GAIT BELT SLIDEBOARD. NON WEIGHT BEARING ON THE LEFT. WEARS AN ORTHOTIC SHOE ON LEFT FOOT WHEN UP. PICC LINE IN LEFT UPPER ARM PATENT AND GETTING IV ANTIBIOTICS. HAS DENIED PAIN. NYSTATIN OINTMENT TO BRANDEN GROINS. NOT RED THEY HAD BEEN LAST WEEK WHEN I SAW THEM. COMPLAINTS OF ITCHING IN RIGHT ARMPIT. VERY RED AND SCALY. ORDER FOR NYSTATIN POWDER RECEIVED FOR IT. NO OTHER COMPLAINTS. Follow up:
--- NOTE | 2017-05-16 05:21 | NUR ---
Significant Event: PICC drsg/cap changed, slightly red at insertion site, good blood return. Ointment to hector/groin, powder to rt axillae. Denies pain. No wt bearing on left foot. Drsg to foot dry/intact, steri-strips to left mid gutiérrez. Small bm plus small involuntary bm early this a.m., voids per urinal. Son visits last evening. Lower legs elevated on pillows, or up when in recliner. Use alarms for safety, don't leave alone in br. Uses slideboard to transfer wtih 1-2 assist. Follow up:Alarms for safety, PICC for atb infusion, don't leave unattended in br, has ointment to groin/periarea and powder to rt axillae.
--- NOTE | 2017-05-16 13:14 | NUR ---
D: Job Change Crew Member Team Conference Follow up FOR 05/14/17 I: Input from patient/family R: Met with: Patient, son, daughter in law, Dr. Stone, Elaine Suarez SYSTEMS DESIGN ENGINEER Discussed rehab plan, patient progress, discharge plan and estimated length of stay of d/c planned in approx. 3-5 days. Patient/Family Preference: patient and family are concerned about finances going into a assisted facility. Patient will have IV antibiotics until the end of May. Anticipated discharge disposition: assisted facility. Education completed: Education was completed with patient regarding length of stay, progress in therapy and d/c plan. Assessment/Recommendation: Team recommends d/c to SNF soon. P: Case Coordination: Donny was admitted with osteomyelitis. He is on IV antiobiotics twice a day until the end of May. Will work on d/c to skilled level of care. [place] with [facility] is helping patient to apply for Medicaid.
--- NOTE | 2017-05-16 15:51 | NUR ---
Significant Event:PATIENT ALERT AND ORIENTED BUT IS FORGETFUL AT TIMES. VSS. TRANSFERS WITH 1-2 ASSIST, GAIT BELT SLIDEBOARD OR PIVOT. NWB ON LEFT FOOT. DOES WELL WITH LIMITATIONS. HAS DENIED PAIN ALL SHIFT. PICC IN LEFT UPPER ARM PATENT WITH GOOD BLOOD FLOW. GETS ANTIBIOTICS THROUGH IT. HAS TOLERATED THERAPIES WELL. NO OTHER COMPLAINTS. Follow up:
--- NOTE | 2017-05-17 01:27 | NUR ---
Significant Event:A/O. Forgetful periods. Pleasant. 1-2 assist slide board and gaitbelt transfer. No weight bearing to left leg. Dressing to left foot C/D/I. Sutures to left gutiérrez intact. Float heels at all times. No DVT ppx to left leg. Sp stocking and calf pump to right leg only. Ointment applied to groin and buttock for redness. PICC left arm; flushes and aspirates well. IV antibiotic infused without issue. Meds whole with water. VSS. Metoprolo held per parameters. MI'KMAQ. Voids per urinal. Bed alarm on. Call light in reach. Follow up:
--- NOTE | 2017-05-17 16:27 | NUR ---
Significant Event: Pt up to w/c and toilet with 2 assist, scoot transfer, giles. fair. NWB LLE. Wooden shoe on. PICC line to left upper arm, remains on ATX. Pt denied pain. Dressing to LLE C/D/I. Inc at time of bladder. Continent of bowel. Pt pleasantly confused at times. Cooperative with cares. Follow up: activity, safety, ATX, PICC cares
--- NOTE | 2017-05-18 02:49 | NUR ---
Significant Event: PATIENT IS ALERT AND ORIENED ALTHOUGH FORGETFUL. VERY PLEASANT. ON ROOM AIR. UP X2 PIVOT/TRANSFER OR SCOOT TRANSFER. NWB TO LEFT EXTREMITY. HAS ORTHOPEDIC SHOE WHEN UP. LEFT DVT. ALARMS AT ALL TIMES. BM YESTERDAY. PICC TO LEFT UPPER ARM. GOOD BLOOD RETURN. USES URINAL AT BEDSIDE. USES CALL LIGHT APPROPRIATELY. Follow up:
--- NOTE | 2017-05-18 15:48 | NUR ---
Significant Event:PATIENT ALERT AND ORIENTED BUT IS FORGETFUL AT TIMES. VSS. TRANSFERS WITH 1-2 ASSIST, SLIDEBOARD. LEFT FOOT DRESSING INTACT. STERI STRIPS REMAIN TO LEFT BARROS. BUTTOCKS MILDLY RASHY YET APPLYING ALOE ON IT WITH BATHROOM BREAKS. HAS BEEN INCONTINENT A COUPLE TIMES THIS SHIFT. PICC LINE IN LEFT UPPER ARM HAS BLOODY DRAINAGE NOTED THIS AFTERNOON AFTER THERAPY. WILL GET DRESSING CHANGED. HAS DENIED PAIN ALL SHIFT. SAT UP IN WHEELCHAIR MOST OF THE DAY WHEN NOT IN THERAPY. NO OTHER COMPLAINTS. Follow up:
--- NOTE | 2017-05-19 02:26 | NUR ---
Significant Event:A/O with some forgetful periods. 1-2 assist slideboard transfer. VSS on room air. PICC dressing changed d/t blood built up around insertion site. PICC flushes and aspirates well. IV antibiotic infused without issue. Left foot non weight bearing.Ortho shoe for all transfers. Dressing C/D/I. Steri strips intact to upper left gutiérrez. Keep heels afloat. Voids per urinal, some incontinence. Ointment to groin for redness. Incontinent at times. Powder to right axillary for redness, clearing well. Meds whole with water; Tylenol at HS. Pleasant and cooperative. Bed alarm on. Calllight in reach. Follow up:
--- NOTE | 2017-05-19 13:19 | NUR ---
Significant Event:PATIENT ALERT AND ORIENTED BUT IS FORGETFUL. VSS. TRANSFERS WITH 1-2 ASSIST, GAIT BELT SLIDEBOARD. LEFT FOOT DRESSING INTACT. PICC LINE PATENT WITH GOOD BLOOD RETURN. HAS DENIED PAIN. UP IN RECLINER AND WHEELCHAIR SINCE BREAKFAST. NO OTHER COMPLAINTS. Follow up:
--- NOTE | 2017-05-20 03:26 | NUR ---
Significant Event:A/O but forgetful. 1 assist slideboard and pivot transfer. Dressing to left foot intact. due to be changed on Saturday. Steri strips to left gutiérrez loose. Ointment to groin for redness and irritation. Nystatin powder to right axillary, redness mostly gone. PICC to left arm flushes and aspirates well. IV antibiotics infused. Denies pain. VOids per urinal. Calf pump on Right leg only. Heals floated. Cooperative. Bed alarm on. Call light in reach. Follow up:Dressing to left footed changed today. Scab to left jawline, nicked self shaving.
--- NOTE | 2017-05-20 03:46 | NUR ---
Significant Event:Alert to self, confused to location and time of year. 1-2 assist transfer with gait-belt at all times. Alarms at all times. Patient is more impulsive. Fell @ 2120. VSS Q4H for 24H starting at 0530. NPO. tube feedings Q4H. Modified Barium Swallow today. Patient very conversational at beginning of shift.In w/c at nurses station for large part of shift start. Bed alarm on. Call bulb in reach.Alarms on. Call light in reach. Follow up:MBS today. VS Q4H. Fall follow up
[2017-05-20 06:16] LABS: ALBUMIN 2.8 gm/dL (3.5-5.0); ALK PHOS 91 IU/L (33-138); ALT 20 IU/L (12-78); ANION GAP 10.3 (10.0-19.0); AST 16 IU/L (10-40); BLOOD UREA NITROGEN 21 mg/dL (6-24); CALCIUM 8.1 mg/dL (8.5-10.5); CHLORIDE 112 mMol/L (96-110); CO2 25 mMol/L (22-32); CREATININE 1.6 mg/dL (0.6-1.3); ESTIMATED GFR (MDRD EQUATION) 41; POTASSIUM 4.3 mMol/L (3.7-5.1); SODIUM 143 mMol/L (135-145); TOTAL PROTEIN 6.3 g/dL (6.0-8.4)
[2017-05-20 06:17] LABS: TOTAL BILIRUBIN 0.5 mg/dL (0.0-1.5)
[2017-05-20 06:23] LABS: BASOPHIL % 0.5 %; EOSINOPHIL # 0.3 K/uL (0.0-0.5); EOSINOPHIL % 4.7 %; HEMATOCRIT 34.3 % (33.0-50.0); IMMATURE GRANULOCYTE % 0.3 %; LYMPHOCYTE # 1.3 K/uL (0.8-4.0); LYMPHOCYTE % 21.6 %; MCH 29.3 pg (27.0-34.0); MCHC 32.1 gm/dL (32.0-36.5); MCV 91.2 fl (83.0-98.0); MONOCYTE # 0.7 K/uL (0.0-1.0); MONOCYTE % 11.1 %; MPV 9.9 fl (9.4-12.4); NEUTROPHIL # (ANC) 3.7 K/uL (1.4-9.0); NEUTROPHIL % 61.8 %; NRBC % 0 /100WBC (0-0.00); RBC 3.76 M/uL (3.50-5.50); RDW-CV 15.4 % (11.9-14.6)
[2017-05-20 06:29] LABS: PLATELET COUNT 162 K/uL (150-450)
--- NOTE | 2017-05-20 08:06 | NUR ---
A-NUTRITION F/U CBW (STANDING SCALE): 89.1 KG. WT ON 05/18 (W/C SCALE): 86.5, 05/14 (W/C SCALE): 85.0 KG. LABS: NA 143, K+ 4.3, GLU 79, BUN 21, MIGRATION SPECIALIST 1.6, ALB 2.8, PREALB 24.0, CRP <0.29 DIET RX: CARDIAC W/ENSURE ENLIVE BID. PO INTAKE 75-100% EST NUTR NEEDS: 2690-1752 KCALS AND 110-128 GM PROTEIN D-NOT AT NUTRITION RISK; NO NUTRITION DX IDENTIFIED I-CONTINUE W/ENSURE ENLIVE BID TO MAINTAIN NUTRITION STATUS M/E-WILL ASSIST NEEDED
--- NOTE | 2017-05-20 12:42 | NUR ---
Significant Event: Patient alert and oriented. Up with 2 assist with slideboard. Non weight bearing to left leg. Wears ortho shoe when up. Charles ERICKSON was here and changed dressing to left foot. Sutures intact. Patient is forgetful at times. Continues on IV antibiotics via PICC line. Uses urinal but is incontinent at times.
--- NOTE | 2017-05-21 04:29 | NUR ---
Significant Event:Slideboard transfer, no weight bear to left foot, wears wooden type shoe with transfers. PICC to upper left arm, good blood return--receives BID IV atb's. Groins red, has been improving--using nystatin ointment. Redness/itching to rt axillae, this also is improving--using nystatin powder. 107/65, held hs lopressor dose due to parameters. Denies pain, has scheduled tyl. Soft bm during night. Voids without difficulty. Follow up:PICC with atb's. No wt bear to left foot. Care to rt axillae/groins.
--- NOTE | 2017-05-21 13:41 | NUR ---
Significant Event: Pt up in room to w/c with slideboard and 1 assist, to toilet with NWB ON LEFT scoot/pivot transfer, does well when holding onto bar in BR. Wooden shoe on when up. No c/o pain. Dressing C/D/I, was changed on 05/20 by ortho. PICC to left upper arm, remains on ATX. BM x 1. Follow up:
--- NOTE | 2017-05-22 04:23 | NUR ---
Significant Event:A/O with periodds of forgetfulness. I assist slideboard transfer. PICc to left arm flushes and aspirates well. IV antibiotics infused without issue. Dressing to left foot intact. Steri strips to left gutiérrez loose. Sp hose to right leg only and calf pump to right for the night. Denies pain, scheduled tylenol given at HS. Call light in reach and bed alarm on. 2 bm this shift. Follow up:Transfer. PICC infusion
--- NOTE | 2017-05-22 11:46 | NUR ---
D: TR progress note for 05/22/17. I: Pt seen for 2 units at 1102 in group session for education on safety when around pets/animals, group participation, and leisure education and coping strategies. R: Pt seen for functional skills building working on relaxation techniques, stress/pain management, and continued education on coping skills using animals for Animal Assisted Therapy. Pt completed functional communication skills independently which included introduction and shared with group about family pets. Pt independently with personal introduction of self, hometown and past pets, was SBA when handling and maneuvering animals during Animal Assisted Therapy utilizing BUE with goof safety awareness and good bilateral scanning. Education done on safety with ambulation/mobility in homes when around animals, safety with possibility of poor skin integrity and utilizing pets to assist with coping and stress/pain management when opportunity available. P: Will continue to see to address goals and plan of care.
--- NOTE | 2017-05-22 15:57 | NUR ---
Significant Event: PICC line to left upper arm. Flushes well, good blood return, remains on ATX. Held metoprolol and cardizem per parameter for BP 102/60. BM today. Denied pain. Enc fluid intake. Voids per urinal and toilet. Dressing to LLE C/D/I. Pt pleasant and cooperative with cares. Forgetful, alarms in use at all times. Up with 1 assist, slideboard to w/c, in BR does not need slideboard. Follow up: activity, safety
--- NOTE | 2017-05-23 04:45 | NUR ---
Alert and well oriented tonight. Remains on BID IV antibiotics. Cont to deny pain. Is one person slideboard assist due to no wt bearing to left foot. Does well with transfers. Dressing dry and intact to left foot and calf. PICC line access.
--- NOTE | 2017-05-23 14:19 | NUR ---
D: TR progress note for 05/23/17. I: Pt seen for 2 units at 1301 for community integration skills building, functional transfers, and safety awareness. R: Pt seen for functional skills building working on mobility, transfers, and community skills in anticipation for discharge back into community. Pt completed slideboard transfers in/out of vehicle SBA, dependent for slideboard management and max verbal cues for hand placement with no recall on task. Pt was SBA for BLE management with cues and seat surface adapted by use of trash bag to ease task with good safety skills maintaining WB status. Pt tolerated ride with no C/o pain, discomfort or problems with nausea initiating comments throughout session. P: Will continue to see to address goals and plan of care.
--- NOTE | 2017-05-23 16:14 | NUR ---
Significant Event:Pt expresses needs well, alert and orientated. PICC line to left upper arm flushes well, old bloody drainage noted under dressing, drsg changed this afternoon. Remains on antibiotic. Had sml BM soft this afternoon. Encourage fluid intake. Voids per urinal/BR. Depends changed with smear BM, and slt dampness. Forgetful, alarms on to remind pt to not get up byself. No wt bearing on left foot, denies pain, dressing C/D/I. Up with 1 assist, slideboard to w/c, does not use slide board in BR uses rail to help him transfer. Mycostatin oint/powder in pt rm for treatments. Pt has been pleasant and cooperative with plan of care. Denies pain. Follow up:pain control, IV antibiotic.
--- NOTE | 2017-05-24 04:13 | NUR ---
A&O. Occassionally forgetful. Cooperative. VSS. Afebrile. Single lumen PICC to left upper arm- flushes well. Intermittant antibiotics. NWB left foot. Dressing C/D/I. Voids per urinal. Briefs on. Nystatin cream and powder for reddness/excoriated areas. Denies pain. Continue plan of care, discharge when appropriate.
--- NOTE | 2017-05-24 14:01 | NUR ---
D: Geriatric Care Manager Team Conference Follow up FOR 05/22/17 I: Input from patient/family R: Met with: Patient, family, Elaine Henning SURGICAL INSTRUMENT TECHNICIAN Discussed rehab plan, patient progress, discharge plan and estimated length of stay of d/c planned soon. Patient/Family Preference: Patient is in agreement. Anticipated discharge disposition: most likely a SNF Education completed: Education was completed with patient regarding length of stay, progress in therapy and d/c plan. Assessment/Recommendation: Team recommends d/c plan soon. P: Case Coordination: Working on d/c plan. Patient is on an expensive IV antibiotic. Called [facility] with repeat referral. Guillermina at [facility] asks if ID doctor could order something else. Info. relayed to nursing. Will await consult from ID to see if there can be any changes. Continue to work on d/c plan.
--- NOTE | 2017-05-24 19:08 | NUR ---
Significant Event:Pt assessment unchanged from previous day. Alert and forgetful. PICC line intact, and patent, antibiotic BID. Voids per urinal/BR, incontinent sometimes. Alarms on to remind to not get up by self, no wt bearing on left foot, ortho shoe on, denies pain, dressing C/D/I. up with 1 assist slide board, uses hand rail in BR. Mycostatin oint/powder for treatments in room. Pt has been plesant and cooperative with plan of care. Follow up:pain control, IV antibiotic, fall @ risk.
--- NOTE | 2017-05-24 19:29 | NUR ---
Significant Event:Pt assessment this am unchanged from previous day. OT did ortho BP this am, note charting, Dr Stone updated, EKG done. De Oliveira removed @ 1040, protocol started @ that time, 1640 bladder scan 225 ml, de oliveira remains out @ this time. Note new orders per Dr Young for dehydration, and NA, Iv started by 3rd attempt person in left anticubital, as previous SL had come out this afternoon, 1st litter to be given in 5 hours, and then 100/hr NS continuous. Check NA level am lab, note Dr Chávez parameters for notification. Also updated pt still not had BM, note new orders, pt drank Mag Citrate, most the bottle till he was afraid it would make him throw up, Fleets enema given with results @ approx. 181, pt flushed the stool, he said moderate amount, noted some residual brown in toilet, also passed flatus, pt said he felt better. Next shfit to decide next step to take per Dr Chávez orders. Back dressing changed this am after shower, no drainage. WOC changed dressings both arms/elbows and right knee 2nd time this shift, sites healing. 3rd day pt complained of dizziness while in therapy. Pt has been pleasant and cooperative with plan of care, very supportive and helpful. Pt reports some of his pain meds makes his mind wander and he is aware of it. I.E. asked his to go down and get something from the corner bar, she asked him what he was talking about, and he said oh its that pain med affecting me. The BID med has been discontinued, first dose change will be tonoc, follow up on if any improvment next day. Follow up:collar on when elevated >35 degrees,monitor BM, Bladder protocol for de oliveira removed @ 1040 this am, NA lab results in am note order to call Dr Young guide lines, pain control, and note new guidelines for pain medication administration per Dr Young.
--- NOTE | 2017-05-25 02:55 | NUR ---
Significant Event:A/O, SOME PERIODS OF CONFUSION. TRANSFER WITH SLIDEBOARD AND GAITBELT OR PIVOT. NON WEIGHT BEARING TO LEFT LEG. dRESSING INTACT SCHEDULE TO BE CHANGED SATURDAY.Picc to upper left arm. Dressing changed. Flushes and aspirates well. IV antibiotics infused, no issues, Nystatin ointnent to groin creases for redness. Nystatin powder to right axillary, mostly healed. DEnies pain. Voids per urinal. Call light in reach. Bed alarm on. Follow up:Transfers. Monitor PICC line
--- NOTE | 2017-05-25 13:26 | NUR ---
Significant Event: Patient alert and oriented. Forgetful at times. PICC line intact. Continues on IV antibiotics. Dressing to left foot intact. 1-2 assist with slideboard. Non weight bearing to left leg. Follow up:
--- NOTE | 2017-05-26 05:29 | NUR ---
Alert and oriented. Calls for assitance to bathroom. 2 good bms tonight. PICC line has good bld return with IV med given. Remains no wt bearing to left foot. Denies pain
--- NOTE | 2017-05-26 11:54 | NUR ---
Significant Event: Patient alert and oriented. Up with 1-2 assist slideboard to wheelchair/recliner. Non weight bearing to left leg. Wears ortho shoe to left leg with transfers. Dressing to left foot intact. PICC line intact and continues on IV antibiotics. Uses urinal. Groin is reddened. Nystatin ointment being used.
--- NOTE | 2017-05-27 05:31 | NUR ---
Alert and oriented. Is a 1-2 person slideboard assist. Remains non-wtbearing to the left foot. Cont on IV antibiotics via PICC line. Am labs drawn.Dsing change scheduled today, but please wait for PA to come between 11-1 so they may look at wound side. Denies pain.
--- NOTE | 2017-05-27 05:35 | NUR ---
Alert and oriented. Uses sit to stand for transfers. Numbness and tingling to lower extremitiies. Positions self in bed. Denies pain. CPAP on at night. Recieves IVIG on fridays.
[2017-05-27 06:01] LABS: ALBUMIN 3.3 gm/dL (3.5-5.0); ALK PHOS 96 IU/L (33-138); ALT 19 IU/L (12-78); ANION GAP 10.2 (10.0-19.0); AST 15 IU/L (10-40); BLOOD UREA NITROGEN 23 mg/dL (6-24); CALCIUM 8.5 mg/dL (8.5-10.5); CHLORIDE 110 mMol/L (96-110); CO2 26 mMol/L (22-32); CREATININE 1.6 mg/dL (0.6-1.3); ESTIMATED GFR (MDRD EQUATION) 41; POTASSIUM 4.2 mMol/L (3.7-5.1); SODIUM 142 mMol/L (135-145); TOTAL BILIRUBIN 0.5 mg/dL (0.0-1.5); TOTAL PROTEIN 6.7 g/dL (6.0-8.4)
[2017-05-27 06:07] LABS: BASOPHIL % 0.5 %; EOSINOPHIL # 0.5 K/uL (0.0-0.5); EOSINOPHIL % 5.9 %; HEMATOCRIT 36.9 % (33.0-50.0); HEMOGLOBIN 12.1 g/dL (11.0-16.0); IMMATURE GRANULOCYTE % 0.4 %; LYMPHOCYTE # 2.1 K/uL (0.8-4.0); MCH 29.9 pg (27.0-34.0); MCHC 32.8 gm/dL (32.0-36.5); MCV 91.1 fl (83.0-98.0); MONOCYTE # 0.9 K/uL (0.0-1.0); MONOCYTE % 11.5 %; MPV 10.2 fl (9.4-12.4); NEUTROPHIL # (ANC) 4.2 K/uL (1.4-9.0); NEUTROPHIL % 54.7 %; NRBC % 0 /100WBC (0-0.00); PLATELET COUNT 156 K/uL (150-450); RBC 4.05 M/uL (3.50-5.50); RDW-CV 15.7 % (11.9-14.6); WBC 7.7 K/uL (4.0-11.0)
--- NOTE | 2017-05-27 11:59 | NUR ---
D: TR progress note for 05/27/17. I: Pt seen for 2 units at 833 for cognitive thinking task, coping skills, fine motor skills and processing. R: Pt seen for functional skills building working on motor skills, sequencing, attention to task, and coordination doing new leisure word task "fillins" to increase independent with leisure task. Task was adapted by color coding and decreasing complexity of project. Pt demonstrated some difficulty with processing information on puzzle's strategy AEB repeatedly loosing place in page when attempt to scan up/down, L)/R) and across. Pt noted with fair motor skills as writing not legible even to pt and needing to rewrite letters repeatedly. Pt be end of session able to complete task with min > occasional cues. Education continued on use of leisure to promote recovery and for coping. P: Will continue to see to address goals and plan of care.
--- NOTE | 2017-05-27 12:35 | NUR ---
A-NUTRITION F/U CBW (W/C SCALE): 86.0; WT IS STABLE FROM PREVIOUS W/C SCALE WT LABS: NA 142, K+ 4.2, GLU 76, BUN 23, LIQUOR INSPECTOR 1.6, ALB 3.3, PREALB 26.0. MEDS: XARELTO DIET RX: CARDIAC W/ENSURE ENLIVE BID. PO INTAKE 50-100%; AVG 96%. EST NUTR NEEDS: 8974-5061 KCALS AND 110-128 GM PROTEIN D-NOT AT NUTRITION RISK; NO NUTRITION RISK IDENTIFIED I-WILL DECREASE ENSURE ENLIVE QD M/E-WILL ASSIST NEEDED
--- NOTE | 2017-05-27 13:13 | NUR ---
Significant Event:Pt alert and orientated. IV antibiotic given as ordered, site flushed. Pt up with 1-2 assist slidebard, BR uses hand rail stand pivot turns, no wt bearing on left foot/leg. Continues to wear Ortho shoe when up. Dressing to left foot intact, to be changed today, reminded Cricket ERICKSON. Nystatin ointment used for reddened groin. Pt likes to read his books, and working on [employer]. Pt has been plesaant and cooperative with plan of care. Denies pain when asked. Follow up:IV antibiotic BID, Nystatin ointment groin, no wt bearing left foot/dressing change Mondays.
--- NOTE | 2017-05-28 04:48 | NUR ---
Significant Event:A/O but confused at times. 1 assist pivot or slideboard, NO weightbearing to left leg. PICC to left arm flushes and aspirates. IV antibiotic infused without issue. Held Lopressor d/t hypotension parameters. Dressing intact. Contact [facility]iss about it. Ortho shoe on with all transfers. Nystatin ointment to groin for redness. Right armpit nystatin powder, healed. Alarms at all times d/t self transfers at ti mes. Voids per urinal. Calls appropriately.Bed alarm on. Call light in reach. Follow up:Non weight bearing to Left leg. Transfers. IV antibiotics. Nystatin to groin.
--- NOTE | 2017-05-28 17:09 | NUR ---
Pt has been alert and oriented to person, place and time. Pt is noted to have trouble finding the right word to express his needs. Pt tolerated working with therapy. Pt moved to new room, pt was oriented to new room. Pt seen by Charles Ji today regarding foot. Order to leave sutures in until foot healed and pt is now weight bearing on heel. Pt is compliant with new weight bearing status and moves with a stand by assist for transfer. Pt did ask if he was allowed to ambulate per self and was educated that he needs to continue to call for veterinary technician assistant. Pt has been compliant this shift. Pt had systolic BP of 100 et per orders Blood pressure medications hele this am. No other conserns at this time.
--- NOTE | 2017-05-29 03:10 | NUR ---
Significant Event:A/O. Forgetful. Alarms at all times, self-transferring. RE-educated to call light. Wants to be independent. Left foot now heel touch weight bearing. Sp stocking and Calf pump to R) leg only. PICC to Left arm flushes and aspirates well. IV antibiotics infused without issue. Scheduled Tylenol at HS. Held Lopressor per parameter. SBP 96. Call light in reach. Bed alarm on. Follow up:Transfers. PICC dressing.
--- NOTE | 2017-05-29 09:53 | NUR ---
Significant Event: PATIENT UP 1-2 ASSIST SLIDE BOARD, CAN ALSO BE HEEL WEIGHT BEARING TO LEFT FOOT WITH QUAD CANE. ALERT AND ORIENTED X3. COOPERATIVE WITH CARES. HAS NOT BEEN INCONTINENT THIS SHIFT, HAS BEEN VOIDING PER BATHROOM. DRESSING INTACT TO LEFT FOOT, CHANGE SATURDAY AND PRN. ORTHOPEDIC SHOE TO LEFT FOOT WHEN UP. VITALS STABLE ON ROOM AIR. PICC TO LEFT UPPER ARM INTACT WITH GOOD BLOOD RETURN, RECEIVES IV ANTIBIOTICS. NYSTATIN DC'D TO GROIN, STARTED NYSTATIN POWDER TO LEFT AXILLA. SHOWERED WITH THERAPY THIS AM, TOLERATED WELL. MEDS WHOLE WITH WATER. FEEDS SELF WELL. DENIES PAIN. Follow up:
--- NOTE | 2017-05-29 11:37 | NUR ---
D: TR progress note for 05/29/17. I: Pt seen for 2 units at 1100 in group session for education on relaxation techniques, stress/pain management, coping strategies, group participation and leisure education. R: Pt seen for functional skills building working on relaxation techniques, stress/pain management, and continued education on coping strategies in anticipation for discharge back into community. Pt actively participated in session, completed functional social communication skills independently which involved personal introduction of self and identification of ways pt dealt with pain/stress prior to hospitalization. Education completed by verbal discussion on the signs and symptoms the physical stress/pain can cause on the body and it's affects along with identification of coping strategies and relaxation techniques. P: Will continue to see to address goals and plan of care.
--- NOTE | 2017-05-30 04:13 | NUR ---
Alert and oriented. Is 1-2 assist slideboard. Can be up with heel wt bearing to lt foot with transfers. Orthopedic shoe to be on left foot when up. Dsing changes to left foot on Mondays. Cont on IV antibiotics bid via PICC line in lt antecubital. Denies pain. Good BM this shift
--- NOTE | 2017-05-30 17:15 | NUR ---
Significant Event: Alert and oriented x 3. May use walker to pivot from wheel chair to bathroom. Heel weight bearing to left foot. Dressing to left foot intact. To be changed on Mondays. Orthopedic shoe to left foot when up. Nystatin to left axilla. PICC to left upper arm. Denies pain. IV antibiotics bid. Cooperative with cares. Follow up:
--- NOTE | 2017-05-31 03:16 | NUR ---
Significant Event: Transfers with one assist/walker with weight on left heel only with pivot type transfer. PICC drsg/cap changed last evening, good blood return and flushes readily. Denies pain. Wears ortho wooden shoe to left foot with transfers. Small bm x 2. Skin to left axillae slightly red, skin intact--nystatin powder applied. Drsg/jeronimo wrap to lower left leg/foot intact, no drainage. Follow up: IV atb BID via PICC. Only weight bear on left heel.
--- NOTE | 2017-05-31 14:11 | NUR ---
D: Nursing Home Assistant Team Conference Follow up for 05/29/2017 I: Input from patient/family R: Met with: patient, family, Elaine Henning FORMING FIXER Discussed rehab plan, patient progress, discharge plan and estimated length of stay of d/c planned soon. Patient/Family Preference: Patient and family are in agreement. Anticipated discharge disposition: SNF vs. home with assistance. Education completed: Education was completed with patient regarding length of stay, progress in therapy and d/c plan. Assessment/Recommendation: Team recommends d/c soon. P: Case Coordination: Donny is an 86 year old man from [place], [place]. He is on IV antibiotics until 06/06/2017. Will continue to work on placement.
--- NOTE | 2017-05-31 14:57 | NUR ---
Significant Event:Transfers with one assist and walker. May put weight on heel with pivot transfer. Ortho shoes intact. PICC line drsg intact and to left antecubital. Recieves ATBX. RINCON. Pleasant gentleman. Denies pain. Drsg/jeronimo wrap to lower left leg/foot intact. No drainage.
--- NOTE | 2017-06-01 04:08 | NUR ---
Significant Event: Patient is alert and oriented. VSS. Up one assist pivot transfers with GB/Walker. Can be WB to his left heal. Wears a surgical shoe to his left foot when up. Continues to have his dressing to the left foot. Sutures have been removed to the incision on his left inner thigh. PICC intact to his upper left arm, flushes well with good blood return. Continues on IV ABX BID. Has red area to his left axillae Nystatin to the area. Follow up:
--- NOTE | 2017-06-01 12:56 | NUR ---
Significant Event: PATIENT UP 1 ASSIST, PIVOT TRANSFER. HEEL BEARING TO LEFT FOOT, ORTHOPEDIC SHOE ON WHEN UP. WHEELING TO BATHROOM AND PIVOTING TO TOILET. PICC TO LEFT UPPER ARM. DRESSING TO LEFT FOOT, CHANGE MONDAYS. VITALS STABLE ON ROOM AIR. DENIES PAIN. CALLS APPROPRIATELY. SLIGHTLY FORGETFUL AT TIMES. INCONTINENT OF BLADDER X1. BM TODAY. FEEDS SELF WELL. NO ISSUES SWALLOWING. COOPERATIVE WITH CARES. Follow up:
--- NOTE | 2017-06-02 02:45 | NUR ---
Significant Event: Patient is alert and oriented. VSS. Up one assist stand pivot to w/c then to the bathroom. WB to left heal, wears a surgical shoe when up. Dressing to left foot change on Mondays. Sutures were removed from his left inner thigh. PICC patent to his left upper arm flushes well with good blood return. Denies pain or discomfort. Has been continent of bladder. Has gotten up w/o help at time so needs to be alarmed for safety. Follow up:
--- NOTE | 2017-06-02 02:59 | NUR ---
Significant Event: Patient is alert and oriented, VSS. Up one assist with GB/Walker pivot transfer to w/c then to bathroom. WB to left heel with surgical shoe during transfers. Dressing remains to his left foot change on Mondays. sutures were removed from his left inner thigh. PICC patent flushes well with good blood return. Continues on IV ABX BID last dose on the . Denies pain or discomfort. Nystatin to his left axilla. Needs to be alarmed at all times for safety. Follow up:
--- NOTE | 2017-06-02 16:07 | NUR ---
Significant Event: Pt up in room with walker, pivot to w/c, only heel weight bearing on left. Orly. well. SOB at times. Metoprolol and cardizem held per parameter. PICC line to left upper arm, flushes well with blood return. Dressing to left foot clean dry and intact. Remains on alarms and stay with pt in br. BM x 2 today. Follow up: safety, ATX, wound care. Continue heel wght bearing on left.
--- NOTE | 2017-06-03 03:06 | NUR ---
Significant Event: Patient is alert and oriented can be forgetful. VSS. Metoprolol held due to parameters. Up one assist with GB/Walker stand pivot transfers to w/c. Patient is allowed to WB to left heel with surgical shoe on during transfers. Dressing remains in place MD changes dressings on Mondays. Sutrues were removed to his left inner thigh 05/31. PICC patent to left upper arm flushes well with good blood return. Cap changed last night. Continues on IV ABX BID until the . Alarm for safety. Follow up: Labs this am
[2017-06-03 03:58] LABS: ALBUMIN 3.3 gm/dL (3.5-5.0); ANION GAP 11.1 (10.0-19.0); CALCIUM 8.2 mg/dL (8.5-10.5); CREATININE 1.6 mg/dL (0.6-1.3); POTASSIUM 4.1 mMol/L (3.7-5.1); TOTAL PROTEIN 6.6 g/dL (6.0-8.4)
[2017-06-03 04:00] LABS: TOTAL BILIRUBIN 0.3 mg/dL (0.0-1.5)
[2017-06-03 04:09] LABS: BASOPHIL % 0.3 %; EOSINOPHIL # 0.4 K/uL (0.0-0.5); EOSINOPHIL % 5.4 %; HEMATOCRIT 36.6 % (33.0-50.0); IMMATURE GRANULOCYTE % 0.3 %; LYMPHOCYTE # 1.8 K/uL (0.8-4.0); LYMPHOCYTE % 25.7 %; MCH 29.9 pg (27.0-34.0); MCHC 32.8 gm/dL (32.0-36.5); MONOCYTE # 0.7 K/uL (0.0-1.0); MONOCYTE % 10.1 %; NEUTROPHIL % 58.2 %; NRBC % 0 /100WBC (0-0.00); PLATELET COUNT 163 K/uL (150-450); RBC 4.02 M/uL (3.50-5.50); RDW-CV 15.7 % (11.9-14.6); WBC 6.8 K/uL (4.0-11.0)
--- NOTE | 2017-06-03 08:32 | NUR ---
A-NUTRITION F/U CBW (W/C SCALE): 86.7 KG; WT STABLE 06/03 LABS REVIEWED: PREALB 26.0 (WNL) NO NEW MEDS DIET RX: CARDIAC W/ENSURE ENLIVE QD AT [facility]. PO INTAKE AT MEALS IS 100% FOR THE MOST PART; OCC 75%. EST NUTR NEEDS: 8701-2988 KCALS AND 110-128 GM PROTEIN D-REMAINS AT NO NUTRITION RISK; NO NUTRITION DX IDENTIFIED I-D/C ENSURE ENLIVE QD D/T ADEQUATE PO INTAKE M/E-ASSIST NEEDED
--- NOTE | 2017-06-03 15:59 | NUR ---
A&O-FORGETFUL. 1PA PIVIOT HEEL PRESSURE ONLY TO LLE. VSS. MEDS WHOLE W/ H20. L FOOT DSG CDI TO BE CHANGED TODAY IF MD DOES NOT COME AND CHANGE IT. PICC AKOSUA INT. IV ATBX. SUTURES TO L) THIGH INTACT. [place]. VENOUS STAINING TO BLE. TOLERATED THERAPIES WELL.
--- NOTE | 2017-06-04 02:47 | NUR ---
Significant Event: A/O x3, forgetful. takes pills whole with water. denies pain. left foot dressing d/i. denies n/t. csm adequate. heel wt bearing to left side. up to bathroom with wheelchair. Follow up:
--- NOTE | 2017-06-04 13:28 | NUR ---
Significant Event: PATIENT UP 1 ASSIST, SLIDE TRANSFER, NWB TO LEFT HEAL. ORTHOPEDIC SHOE TO LEFT FOOT WHEN UP. DRESSING INTACT TO LEFT FOOT, CHANGE MONDAYS. PICC TO LEFT UPPER ARM WITH GOOD BLOOD RETURN, IV ANTIBIOTICS WILL DC ON 06/06. FEEDS SELF WELL, NO ISSUES SWALLOWING. FORGETFUL AT TIMES. CALLS APPROPRIATELY. CONTINENT OF BOWEL AND BLADDER. NYSTATIN TO LEFT AXILLA. VITALS STABLE ON ROOM AIR. HAD A LACTATE RINGERS BOLUS 500 ML TODAY, BMP TO BE DRAWN 06/06. COOPERATIVE WITH CARES. Follow up:
--- NOTE | 2017-06-05 03:44 | NUR ---
Significant Event: A/O X3 BUT FORGETFUL. DID GET UP IN ROOM AT SHIFT CHANGE BY SELF. CONFUSED, THOUGHT BECAUSE HE COULD WALK IN ROOM WITH THERAPY THAT HE WAS FREE TO DO SO ANYTIME. WAS UPSET AND A LITTLE ANXIOUS ABOUT THE INCIDENT. IS TO HAVE A BMP IN AM. EDMA TO LOWER EXTREMITIES. DRESSING TO LEFT FOOT D/I. TAKES PILLS WHOLE WITH WATER. PICC TO LEFT UPPER ARM. CONTINUES WITH IV ANTIBODICS. Follow up:
--- NOTE | 2017-06-05 14:58 | NUR ---
Significant Event: Alert and oriented x 3. Up with 1A. NWB to left heal. Orthopedic shoe to left foot. Sutures are going to be removed by Charles today. Dressing to left foot C/D/I. PICC left upper arm. IV antibiotics. Last dose to b given 06/06. Pills whole with water. Nystatin to left axilla. Continent of bowel and bladder. BMP to be drawn 06/06. Cooperative with cares. Follow up:
--- NOTE | 2017-06-06 02:44 | NUR ---
Significant Event:A/O. Sutures removed from Left foot by Charles Medrano, patient now WBAT. Transfers to bathroom 1 assist w/ walker and gaitbelt. Still rests weight onto left heel. Denies pain. PICC to L) arm flushes and aspirates well. Meds whole with water. VSS on room air. Change dressing to L) foot q3days. May shower if foot is covered, do not soak until incision healed over. Call light in reach. Bed alarm on. Follow up:
[2017-06-06 05:44] LABS: CALCIUM 8.3 mg/dL (8.5-10.5); CREATININE 1.6 mg/dL (0.6-1.3)
--- NOTE | 2017-06-06 15:15 | NUR ---
Significant Event: Alert and oriented x 3. Up with 1A walker and gait belt. WBAT. Orthopedic shoe to L) foot. May wear a shoe but needs one that fits over bandage. Dressing to L) foot C/D/I. Last dose of IV antibiotics given this monrning. PICC to L) upper arm. Pills whole with water. Nystatin to left axilla. Continent of bowel and bladder. Cooperative with cares. Follow up:
--- NOTE | 2017-06-07 03:28 | NUR ---
Significant Event:A/o. Forgetful. Transfer 1a walker and gaitbelt, with orthopedic shoe. Dressing to left foot intact, no drainage noted. Last IV antibiotic given. PICC removed as ordered, dressing to be removed in 24hours (06/07 @2210). VSS on room air. DVT ppx to right foot only. Alarms at all times-impulsive. Call light in reach. Bed alarm on. Follow up:Dressing change to left foot next on Friday 06/08. Alarms
--- NOTE | 2017-06-07 10:27 | NUR ---
Significant Event: PATIENT UP 1 ASSIST, WALKER, GAIT BELT. ORTHOPEDIC SHOE TO LEFT FOOT, WBAT. DRESSING TO BE CHANGED TOMORROW TO LEFT FOOT. DRESSING INTACT WITH NO DRAINAGE. ORIENTED TO PERSON/PLACE, FORGETFUL. CALLS APPROPRIATELY. HAS BEEN CONTINENT OF BOWEL AND BLADDER. DENIES PAIN. VITALS STABLE ON ROOM AIR. PICC REMOVED YESTERDAY FROM LEFT UPPER ARM, DRESSING CAN BE REMOVED THIS EVENING. NYSTATIN TO LEFT ARMPIT. PLEXIPULSES AND JOBST STOCKING FOR RIGHT LEG ONLY. Follow up:
--- NOTE | 2017-06-07 13:36 | NUR ---
D: TR progress note for 06/07/17. I: Pt seen for 2 units at 1231 for community integration skills building, functional transfers, and safety awareness. R: Pt seen for functional skills building working on mobility, safety, functional transfers and community skills in anticipation for discharge back into community. Pt transferred sit > stand from CGA, ambulated with walker 5 feet to/from vehicle CGA and transferred in/out of vehicle CGA with verbal cue for safety with hand placement. Pt was SBA for BLE management and positioning of self with seat surface adapted using trash bag to ease task. Pt tolerated with no C/o pain, discomfort or nausea. P: Will continue to see to address goals and plan of care.
--- NOTE | 2017-06-08 05:40 | NUR ---
Significant Event:Up with one assist and walker, does well, can bear weight to left foot when ortho wooden type shoe is on. Stevie wrap/drsgs dry, no visible drainage. Removed drsg from former PICC site, slight redness but soft, pt denies tenderness. Family requests a dementia assessment, Dr Castro gave order for Speech Therapy to evaluate. Slightly red to left axillae, powder was applied as ordered. Oral intake 620 ml, Voids x 4, bm last on the . Follow up:Drsg to left foot due to be changed today. Order placed for Speech to perform a dementia assessment on pt. Also found order on chart for a Doppler study 24-48 hrs prior to discharge--pt tentatively leaving Saturday.
[2017-06-08 12:35] LABS: ALBUMIN 3.5 gm/dL (3.5-5.0); ANION GAP 10.1 (10.0-19.0); CALCIUM 8.5 mg/dL (8.5-10.5); CREATININE 1.6 mg/dL (0.6-1.3); POTASSIUM 4.1 mMol/L (3.7-5.1); TOTAL PROTEIN 7.1 g/dL (6.0-8.4)
[2017-06-08 12:38] LABS: TOTAL BILIRUBIN 0.4 mg/dL (0.0-1.5)
--- NOTE | 2017-06-08 15:33 | NUR ---
Significant Event:PATIENT ALERT AND ORIENTED BUT IS VERY FORGETFUL. VSS. TRANSFERS WITH 1 ASSIST, GAIT BELT AND WALKER. OLD PICC SITE IN LEFT UPPER ARM HEALING WELL. OPEN TO AIR AND NO DRAINAGE NOTED. HAS DENIED PAIN ALL SHIFT. DRESSING TO BE CHANGED TODAY. WILL DO THIS AFTERNOON. RESTS IN RECLINER ALL DAY. NO OTHER COMPLAINTS. Follow up:
--- NOTE | 2017-06-09 04:36 | NUR ---
Significant Event:Up with one assist/walker, wbat to left foot with ortho walking shoe on. PICC site to left ac healing, slightly pink but no tenderness/no drainage. Nystatin powder to left axillae (slightly pruritic and red), to right axillae--slightly red, no pruritis. Held lopressor dose at hs due to sys b/p at 107. Small bm x 2 on manager shift, po intake 400 ml. Voids x 4, had 1 small incontinence. Doppler done Sat. Drsg intact to left foot, no drainage. Denies pain, takes scheduled tylenol. Follow up: Dementia assessment per Speech Therapy prior to discharge. Discharge on Saturday at 11:30 a.m.
--- NOTE | 2017-06-09 14:39 | NUR ---
Significant Event:PATIENT ALERT BUT IS FORGETFUL AT TIMES. VSS. TRANSFERS WITH 1 ASSIST, GAIT BELT AND WALKER. HAS DENIED PAIN TODAY. DRESSING REMAINS DRY AND INTACT. TAKES MEDS WHOLE WITH WATER. RESTS IN RECLINER ALL DAY. OT DID DO A SHOWER THIS AM. NO OTHER COMPLAINTS. PLAN IS FOR DISCHARGE TOMORROW. Follow up:
--- NOTE | 2017-06-10 04:16 | NUR ---
Significant Event:Left axillae slightly red/itching--nystatin applied. Did see redness beneath right axillae on Sat but none last evening. Drsg to left foot intact, no drainage. Wears wooden walking shoe to left when up. Held lopressor dose last evening as b/p 104 sys and med has parameters. BM on , voids x 5, with 340 ml oral intake. Up with one assist, wbat with gait belt and walker. Denies pain. Follow up:Family request for Dementia Screening, ordered obtained from hospitalist and placed order with Speech Therapy. Discharge at 11:30 to [facility]--orders on chart and needs completed. Have Nystatin powder relabeled by osei nguyen to pts' discharge.
--- NOTE | 2017-06-10 08:28 | NUR ---
Significant Event: PATIENT TRANSFERRING TO [facility] TODAY. ALERT AND ORIENTED X3. SLIGHTLY CONFUSED AT TIMES. COOPERATIVE WITH CARES. VITALS STABLE ON ROOM AIR. DRESSING TO LEFT FOOT, SARAI HAVE BEEN REMOVED. DRESSING CHANGE EVERY THREE DAYS, LAST CHANGED ON 06/08. DRESSING IS NON ADHERENT, 4X4 GAUZE, CAST PADDING, AND JOE WRAP. COVER WHEN SHOWERING. WEARS JOBST STOCKING TO RIGHT LEG. 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 WEARS ORTHOPEDIC SHOE TO LEFT FOOT, WBAT. INCONTINENT AT TIMES WHEN TRYING TO USE URINAL, IS BEST WHEN UP TO BATHROOM. AMBULATES WITH 1 ASSIST, WALKER, GAIT BELT. TOLERATES ACTIVITY WELL. DENIES PAIN. MEDS WHOLE WITH WATER. FEEDS SELF WELL. IS ON CARDIAC DIET. RED LEFT AXILLA, NYSTATIN POWDER SCHEDULED. FAMILY VERY INVOLVED IN CARE. Follow up:
--- NOTE | 2017-06-10 09:24 | NUR ---
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 Stone, Elaine Suarez CERTIFIED PEDORTHOTIST Discussed rehab plan, patient progress, discharge plan and estimated length of stay of discharge planned on 06/10/17 to [facility] in [place], [place]. Patient/Family Preference: Patient is in agreement with this plan. Anticipated discharge disposition: SNF Education completed: Education was completed with patient regarding length of stay, progress in therapy and discharge plan. Assessment/Recommendation: Team recommends d/c. P: Case Coordination: Donny is an 86 year old man from [place], [place]. Plan is for patient to d/c to [facility] on 06/10/17. ID screen completed. Will see how patient is doing next week.
== END 2017-06-10 12:00 | DRG 540 ==
LOC: GIRP 11:25
PROVIDERS: Internal Medicine; Nurse Practitioner Family; ADMIT Physical Medicine & Rehabilitation
DX: M86.672 Other chronic osteomyelitis, left ankle and foot (principal); I13.0 Hypertensive heart and chronic kidney disease with heart failure and stage 1 through stage 4 chronic kidney disease, or unspecified chronic kidney disease; I50.9 Heart failure, unspecified; I82.512 Chronic embolism and thrombosis of left femoral vein; I48.0 Paroxysmal atrial fibrillation; N18.3 Chronic kidney disease, stage 3 (moderate); I73.9 Peripheral vascular disease, unspecified; Z74.1 Need for assistance with personal care; H54.7 Unspecified visual loss; E78.5 Hyperlipidemia, unspecified; I25.10 Atherosclerotic heart disease of native coronary artery without angina pectoris; Z95.5 Presence of coronary angioplasty implant and graft; Z79.01 Long term (current) use of anticoagulants
CPT/HCPCS: A9270; J0712; J7030; J7040; J7050; J7120